=== PATIENT | male | born 1970 | race Caucasian/White ===

== ENCOUNTER 2017-03-18 08:41 | Emergency (ER) | payer MEDICAID ==
[~2017-03-18] VITALS: Ht 182.9 cm; Wt 59.9 kg
[~2017-03-18 08:41] MED LIST: SUCR1TAB36 PO
--- NOTE | 2017-03-18 09:14 | ED GI ---
General Chief Complaint: Abdominal/GI Problems Stated Complaint: ABD PAIN Nursing Triage Note: PT CO OF ABD PAIN, DIFFUSE, CONSTIPATION, DIARRHEA,STATES USED ENEMAS YESTERDAY,STATES HAS LOST 30 # RECENTLY Sepsis Screen: No Definite Risk Source of Information: Patient Exam Limitations: No Limitations History of Present Illness Time Seen By Provider: 09:08 Initial Comments Patient reports that he has been battling constipation for years and for the past 2 weeks he has not been able to have much of a bowel movement. However he states she's also had very little appetite. He has been using IV methamphetamines which she feels may be contributing to his lack of appetite. He states he is seen at the clinic in [place] and was recently tested for hepatitis there. He is having mild diffuse abdominal pain and nausea. He was seen at the ER in [place] and told to use MiraLAX every 2 hours that he was unable to keep it down because of the nausea. They gave him a pill for nausea which she used and it helped but he abandon the MiraLAX and try to couple enemas did not do anything but liquids back. Patient states he is passing gas this morning. He reports using methamphetamine as recently as 2 days ago. He has not attending Narcotics Anonymous. He declines treatment or wanting to get off at this time. Allergies and Home Medications Allergies Coded Allergies: No Known Drug Allergies (Unverified , 10/18/15) Home Medications Sucralfate 1 Gm Tablet, 1 GM PO QID, #40 Prescribed by: AUGUSTO CARSON on 10/18/15 1352 Review of Systems Constitutional: No chills, No diaphoresis, No malaise Respiratory: Denies Shortness of Air, Denies Wheezing Cardiovascular: Denies Chest Pain, Denies Palpitations, Denies Syncope Gastrointestinal: Denies Abdomen Distended, Abdominal Pain, Constipated ( chronic), Denies Diarrhea, Denies Difficulty Swallowing, Nausea, Vomiting ( without blood) Genitourinary: Denies Burning, Denies Discharge Musculoskeletal: No back pain, No joint pain Skin: No pruritus, No rash Past Ziiifck-Apircn-Xdmvab Hx Patient Social History Alcohol Use: Regular Use Recreational Drug Use: Yes (METH 2 DAYS AGO) Smoking Status: Current Everyday Smoker Recent Foreign Travel: No Contact w/Someone Who Travel: No Recent Infectious Disease Expo: No Surgeries HX Surgeries: No Respiratory Hx Respiratory Disorders: No Cardiovascular Hx Cardiac Disorders: No Neurological Hx Neurological Disorders: No Reproductive System Hx Reproductive Disorders: No Genitourinary Hx Genitourinary Disorders: No Gastrointestinal Hx Gastrointestinal Disorders: No Musculoskeletal Hx Musculoskeletal Disorders: No Endocrine Hx Endocrine Disorders: No HEENT HX ENT Disorders: No Cancer Hx Cancer: No Psychosocial Hx Psychiatric Problems: No Integumentary HX Skin/Integumentary Disorder: No Blood Transfusions Hx Blood Disorders: No Physical Exam Vital Signs VS - Last 72 Hours, by Label 03/18/17 08:50 Temp 98.1 Pulse 104 Resp 18 B/P (MAP) 138/105 Pulse Ox 97 Capillary Refill : Less Than 3 Seconds General Appearance: WD/WN, no apparent distress HEENT: PERRL/EOMI, pharynx normal Neck: non-tender, normal inspection Respiratory: lungs clear, normal breath sounds Cardiovascular: normal peripheral pulses, regular rate, rhythm, no edema Peripheral Pulses: 4+ Radial Pulses (R), 4+ Radial Pulses (L) Gastrointestinal: soft, no organomegaly, no pulsatile mass, abnormal bowel sounds (hyperactive), No guarding, No rebound, tenderness, other (diffuse) Extremities: non-tender, normal inspection, no calf tenderness, normal capillary refill Back: normal inspection, no CVA tenderness Neurologic/Psychiatric: alert, oriented x 3 Skin: normal color, warm/dry Progress/Results/Core Measures Results/Orders My Orders Orders - DIEGO OLVERA Abdomen/Kub 1view (03/18/17 09:14) Vital Signs/I&O Vital Sign - Last 12Hours 03/18/17 08:50 Temp 98.1 Pulse 104 Resp 18 B/P (MAP) 138/105 Pulse Ox 97 Blood Pressure Mean: 116 Progress Note : Time: 09:48 Progress Note Offered him to quit narcotics and support and the patient declined. His diarrhea and nausea may be because there does not appear to be anything on physical exam in his colon. We will get a abdominal x-ray to look at that. He is asking for refill of nausea meds and where or than willing to help him there. I explained in great detail that his weight loss is probably due to his IV drug use. The patient states he realizes this. He has recently been checked for chronic hepatitis outpatient. Diagnostic Imaging Diagonstic Imaging: Xray Plain Films/CT/US/NM/MRI: abdomen Comments No acute osseous abnormality is noted. There is a nonspecific bowel gas pattern without evidence of constipation. Departure Impression Impression: Primary Impression: Nausea and vomiting Qualified Codes: R11.2 - Nausea with vomiting, unspecified Disposition: 01 HOME, SELF-CARE Condition: Stable Departure-Patient Inst. Referrals: [facility][1] (PCP) Primary Care Physician Patient Instructions: Nausea and Vomiting, Adult (DC) Add. Discharge Instructions: You have been given some medicine called Zofran to be used every 6 hours as needed for nausea or vomiting. Take at the first signs of nausea. Start slow with a clear liquid diet and advance to broths and soups. As you become better able to tolerate foods you should try foods with high fiber content such as bananas, rice, applesauce, or toast. You do not need to continue taking MiraLAX or enemas at this time as it appears your bowels are cleaned out. As your appetite returns you'll start to feel better and you should be encouraged to drink plenty of fluids. You are highly encouraged not to take any medications not prescribed for recommend by your physician. If you need help with your addictions you can talk to your primary care physician or come back and we will make referral to an addiction treatment facility. You may also present directly to an addiction treatment facility on your own accord. All discharge instructions reviewed with patient and/or family. Voiced understanding. Scripts Ondansetron HCl (Zofran) 4 Mg Tab 4 MG PO Q6H Y for NAUSEA/VOMITING-1ST LINE, #20 TAB 0 Refills Prov: DIEGO LOVERA 03/18/17 Copy Copies To 1: FARAZ KENNEDY DO DIEGO OLVERA Mar 18, 2017 09:14
[2017-03-18] MEDS ORDERED: ONDN4T PO ×2 (09:18→10:01)
--- NOTE | 2017-03-18 10:00 | Diagnostic Imaging Report ---
INDICATION: Abdominal pain FINDINGS: No pathological fecal loading. No pathological air-containing dilated loop of small or large bowel. No suspicious calcifications or mass effect. IMPRESSION: Unremarkable KUB. Dictated by: Dictated on workstation # [id number]
[2017-03-18 10:09] VITALS: BP 132/94
--- OUTSIDE RECORDS SUMMARY | 2017-03-21 04:12 | XMS REPORT | Continuity of Care Document ---
Author Author [facility] Address Unknown Phone Unavailable Allergies Active Description Code Type Severity Reaction Onset Reported/Identified Relationship to Patient Clinical Status Yes No Known Drug Allergies [id number] Drug Allergy Unknown N/ A 10/18/2015 Medications Problems Date Dx Coded Attending Type Code Diagnosis Diagnosed By 07/15/2014 MARIA M MCKEON APRN 305.93 NONDEPENDENT OTHER MIXED OR UNSPECIFIED DRUG ABUSE IN REMISSION 07/15/2014 MARIA M MCKEON APRN L 719.44 PAIN IN JOINT INVOLVING HAND 07/15/2014 MARIA M MCKEON APRN L 727.3 OTHER BURSITIS DISORDERS 07/15/2014 MARIA M MCKEON APRN L 305.93 NONDEPENDENT OTHER MIXED OR UNSPECIFIED DRUG ABUSE IN REMISSION 07/15/2014 MARIA M MCKEON APRN L 719.44 PAIN IN JOINT INVOLVING HAND 07/15/2014 MARIA M MCKEON APRN L 727.3 OTHER BURSITIS DISORDERS 08/13/2014 MARIA M MCKEON APRN L 715.04 OSTEOARTHROSIS GENERALIZED INVOLVING HAND 10/18/2015 AUGUSTO CARSON APRN Ot F10.20 10/18/2015 AUGUSTO CARSON APRN Ot K29.70 Procedures Code [place] [address] ROUTINE VENIPUNCTURE 07/15/2014 61949 CMP 07/15/2014 74175 LIPID PANEL 07/15 48272 CBC 07/15/2014 98730 SED/ESR RATE RML 07/15/2014 99438 CRP 07/15/2014 98937 HIV ([facility]) 07/15/2014 98901 HEP C ANTIBODY ([facility]) 07/15/2014 65561 TSH 07/15/2014 52735 XRAY HAND GERMAN 2 VIEWS 08/13/2014 Results Encounters ACCT No. Visit Date/Time Discharge Status Pt. Type Provider Facility Loc./Unit Complaint [id number] 08/13/2014 07:38:00 08/13/2014 23: 59:59 [facility] Outpatient MARIA M MCKEON APRN [id number] 07/15/2014 09:31:00 07/15/2014 23: 59:59 [facility] Outpatient MARIA M MCKEON APRN
== END 2017-03-18 10:09 | disposition home or self-care (01) ==
LOC: EDUNIT# 08:41 → ER 08:44
DX: R10.31 Right lower quadrant pain (principal); R10.32 Left lower quadrant pain
CPT/HCPCS: 74000; 99282

== ENCOUNTER 2018-11-14 16:01 | Emergency (ER) | payer SELFPAY ==
[~2018-11-14] VITALS: Ht 182.9 cm; Wt 68.0 kg
[~2018-11-14 16:01] MED LIST changes: +ONDN4T PO
--- NOTE | 2018-11-14 16:20 | ED Upper Extremity ---
General Chief Complaint: Upper Extremity Stated Complaint: R ELBOW PAIN Source: patient Exam Limitations: no limitations History of Present Illness Date Seen by Provider: Nov 14, 2018 Time Seen by Provider: 16:19 Initial Comments 48-year-old male who presents to the emergency room with complaints of right elbow pain after tripping and falling last night landing on the coffee table. He reports that when he tripped he fell onto his knees and hit the edge of his coffee table with his right elbow. He has had reconstructive surgery to the right elbow in the past and this morning when he woke up he had pain and swelling to the right elbow. Onset: other (last night) Pain/Injury Location: right elbow Modifying Factors: Worse With Movement Allergies and Home Medications Allergies Coded Allergies: No Known Drug Allergies (Unverified , 10/18/15) Home Medications Sucralfate 1 Gm Tablet, 1 GM PO QID Prescribed by: AUGUSTO CARSON on 10/18/15 1352 Patient Home Medication List Home Medication List Reviewed: Yes Past Wrqqcrn-Ieqqqv-Wctmbq Hx Patient Social History Alcohol Beverage of Choice: Beer Recent Foreign Travel: No Contact w/Someone Who Travel: No Past Medical History Reproductive Disorders: No Physical Exam Vital Signs Vital Signs - First Documented 11/14/18 16:10 Temp 98.0 Pulse 90 Resp 16 B/P (MAP) 135/81 (99) Pulse Ox 95 O2 Delivery Room Air Capillary Refill : Height, Weight, BMI Height: 6'0" Weight: 132lbs. oz. 59.535115aj; BMI Method:Stated Progress/Results/Core Measures Results/Orders My Orders Orders - FLORENTIN FORBES Elbow, Right, 3 Views (11/14/18 16:18) Vital Signs/I&O 11/14/18 16:10 Temp 98.0 Pulse 90 Resp 16 B/P (MAP) 135/81 (99) Pulse Ox 95 O2 Delivery Room Air Departure Impression Primary Impression: Contusion of right elbow Disposition: 01 HOME, SELF-CARE Condition: Stable/Unchanged Departure-Patient Inst. Decision time for Depature: 17:10 Referrals: [facility] (PCP) Primary Care Physician NO,LOCAL PHYSICIAN (Family) Primary Care Physician Patient Instructions: Contusion (DC) Add. Discharge Instructions: Ice to the sore areas at 20 minute intervals. You may use ibuprofen and Tylenol as directed by the bottle for pain relief. For pain unrelieved with ibuprofen and Tylenol you may use the hydrocodone that was prescribed. Follow-up with an orthopedic surgeon in 1 week if the elbow pain is not improving. Return back to the emergency room for worsening symptoms or concerns as needed. All discharge instructions reviewed with patient and/or family. Voiced understanding. Scripts Hydrocodone Bit/Acetaminophen (Hydrocodone/Acetaminophen 5/325mg Tablet) 1 Tab Tab 1 EACH PO Q4-6HR PRN for PAIN-MODERATE MDD 10, #10 TAB Prov: FLORENTIN FORBES 11/14/18 FLORENTIN FORBES Nov 14, 2018 16:20
--- NOTE | 2018-11-14 16:51 | Diagnostic Imaging Report ---
INDICATION: Fall with right elbow injury. FINDINGS: AP, oblique and lateral views of the right elbow reveal old fracture deformity and two Ron screws within the radial head. There may be minimal offset of articular surface. There is mild marginal spurring about the elbow joint indicating probable posttraumatic degenerative change. There are no acute fractures identified. There is no definite joint effusion or hemarthrosis although lateral view is somewhat limited due to positioning. IMPRESSION: Old elbow region injuries without definite acute osseous abnormality. Dictated by: Dictated on workstation # [id number]
[2018-11-14] MEDS ORDERED: ACHD5005 PO (17:11)
[2018-11-14] MEDS ORDERED: HYDROcodone/APAP 7.5 MG/325 MG (LORTAB, LORCET PLUS) TABLET PO ONE (17:15)
[2018-11-14 17:16] VITALS: BP 135/81
--- OUTSIDE RECORDS SUMMARY | 2018-11-14 20:43 | XMS REPORT ---
Demographics Address [address] [place] [address] Preferred Language Unknown Marital Status Unknown Jewish Affiliation Unknown Race Unknown Ethnic Group Unknown Author Author FARAZ KENNEDY [facility] Address [address] [place] [address] Care Team Providers Care Healthcare Recruiter Name Role Phone FARAZ KENNEDY Unavailable PROBLEMS Type Condition ICD9-CM Code [id number] Code Onset Dates Condition Status SNOMED Code Problem Generalized abdominal pain R10.84 Active 353851637 Problem Constipation, unspecified constipation type K59.00 Active 48541332 Problem Generalized anxiety disorder F41.1 Active 77210871 Problem Mood disorder F39 Active 99624193 ALLERGIES No Information ENCOUNTERS Encounter Location Date Diagnosis [facility] [address] [address] Jun, Encounter for immunization Z23 [facility] [address] [id number] [id number] Apr, [facility] [address] [address] [facility] [address] [id number] [id number] Jun, Dental caries K02.9 [facility] [place] [address] [address] [facility] [id number] [id number] Apr, Dental examination Z01.20 [facility] [address] [facility] [address] [id number] [id number] Feb, Constipation, unspecified constipation type K59.00 and Generalized abdominal pain R10.84 [facility] [address] [facility] [id number] [id number] Feb, [facility] [address] [id number][place] [id number] Feb, [facility] [address] [facility] [id number], [place] [address] 09 Feb, 2017 Generalized anxiety disorder F41.1 and Mood disorder F39 [facility] [address], [place] [address] Feb, Strain of right biceps muscle, initial encounter S46.211A and Acute pain of right shoulder M25.511 [facility] [address] [address] 10 Oct, 2015 [facility] [address] [id number][place] [id number] 10 Oct, 2015 Abdominal pain R10.9 and Epigastric abdominal pain R10.13 [facility] [place] [address] [place] [address] AVE [id number], [place] [id number] January, [facility]dominal [facility]89.[id number] [place] [id number] January, Constipation 564.00 [facility] [address] [place] [address] [address], [address] [facility] [id number] [place] [address] Dec, [facility] [address] [place] [address] Jul, [facility] [address] [address] Jul, [facility] [address] [address] Jul, [facility] [address] [id number] [address] Jun, [facility] [address] [address] Jun, [facility] [address] [address] Jun, [facility] [address] [address] Jun, IMMUNIZATIONS Vaccine Route Administration Date Status FLULAVAL QUAD 0.5ML (6 MO & UP) 2017 IM Intramuscular Jul 13, 2018 Administered SOCIAL HISTORY Never Assessed REASON FOR VISIT Flu shot-DUKE beltran PLAN OF CARE VITAL SIGNS MEDICATIONS Unknown Medications RESULTS No Results PROCEDURES Procedure Date Ordered Result Body Site FLULAVAL QUAD 0.5ML (6 MO AND UP) 2017Jul 13, 2018 SINGLE IMMUNIZATION ADMIN Jul 13, 2018 INSTRUCTIONS MEDICATIONS ADMINISTERED No Known Medications MEDICAL (GENERAL) HISTORY Type Description Date Medical History arthritis-osteo Medical History Gastritis Hospitalization History Hospitalized for pancreatitis approx 2004 Hospitalization History [facility]-Stomach pain. Recieved two bags of fluid and released. 02/2017
--- OUTSIDE RECORDS SUMMARY | 2018-11-14 20:44 | XMS REPORT ---
Demographics Address [address] [place] [address] Preferred Language Unknown Marital Status Unknown Sabianism Affiliation Unknown Race Unknown Ethnic Group Unknown Author Author MARIA M MCKEON [facility] Address [address] [place] [address] Care Team Providers Care Public Finance Specialist Name Role Phone MARIA M MCKEON Unavailable PROBLEMS Type Condition ICD9-CM Code [id number] Code Onset Dates Condition Status SNOMED Code Problem Generalized abdominal pain R10.84 Active 080608982 Problem Constipation, unspecified constipation type K59.00 Active 06831438 Problem Generalized anxiety disorder F41.1 Active 37145698 Problem Mood disorder F39 Active 79544718 ALLERGIES No Information ENCOUNTERS Encounter Location Date Diagnosis [facility] [address] [id number] [id number] Apr, [facility] [address] [id number] [id number] Jun, Dental caries K02.[address] [id number] [place] [id number] Apr, Dental examination Z01.[address] [id number][place] [id number] Feb, Constipation, unspecified constipation type K59.00 and Generalized abdominal pain R10.84 [facility] [address] [id number] [id number] Feb, [address] [id number], [place] [id number] Feb, [facility] [place] [address] [id number], [place] [address] 09 Feb, 2017 Generalized anxiety disorder F41.1 and Mood disorder F39 [facility] [address] [id number], [place] [address] Feb, 2017 Strain of right biceps muscle, initial encounter S46.211A and Acute pain of right shoulder M25.511 [facility] [place] [address] [address] 10 Oct, 2015 [facility] [address] [place] [address] AV [id number][place] [id number] 10 Oct, 2015 Abdominal pain R10.9 and Epigastric abdominal pain R10.13 [facility] [address] [place] [address] AVE [id number][place] [id number] January, Abdominal pain 789.00 [facility] [address] [place] [address] [id number][place] [id number] January, Constipation 564.00 [facility] [place] [id number] [place] [address] Dec, [facility] [place] [id number] [place] [address] Dec, [facility] [place] [id number] [place] [address] Jul, [facility] [place] [id number] [place] [address] Jul, [facility] [place] [id number] [place] [address] Jul, [facility] [place] [address] [place] [address] Jun, [facility] [place] [id number] [place] [address] Jun, [facility] [place] [address], [place] [address] Jun, [facility] [place] [id number] [place] [address] Jun, IMMUNIZATIONS No Known Immunizations SOCIAL HISTORY Never Assessed REASON FOR VISIT Triage PLAN OF CARE VITAL SIGNS MEDICATIONS Unknown Medications RESULTS No Results PROCEDURES No Known procedures INSTRUCTIONS MEDICATIONS ADMINISTERED No Known Medications MEDICAL (GENERAL) HISTORY Type Description Date Medical History arthritis-osteo Medical History Gastritis Hospitalization History Hospitalized for pancreatitis approx 2004 Hospitalization History [facility]Stom[facility]. Recieved two bags of fluid and released. 02/2017
--- OUTSIDE RECORDS SUMMARY | 2018-11-14 20:44 | XMS REPORT ---
Demographics Address [address] [place] [address] Preferred Language Unknown Marital Status Unknown Jew Affiliation Unknown Race Unknown Ethnic Group Unknown Author Author PAKO HANNA [facility] Address [address] [place] [address] Care Team Providers Care Independent Trader Name Role Phone PAKO HANNA Unavailable PROBLEMS Type Condition ICD9-CM Code EYJ07-CI Code Onset Dates Condition Status SNOMED Code Problem Generalized abdominal pain R10.84 Active 099434327 Problem Constipation, unspecified constipation type K59.00 Active 01730217 Problem Generalized anxiety disorder F41.1 Active 54225533 Problem Mood disorder F39 Active 82450763 ALLERGIES No Known Allergies ENCOUNTERS Encounter Location Date Diagnosis [address] [id number], [place] [id number] Jun, Dental caries K02.[address] [id number] [place] [id number] Apr, Dental examination Z01.[address] [id number] [place] [id number] Feb, Constipation, unspecified constipation type K59.00 and Generalized abdominal pain R10.84 [facility] [address] [facility] [id number][place] [id number] Feb, [address] [id number], [place] [id number] Feb, [facility] [place] [address] [id number], [place] [address] Feb, Generalized anxiety disorder F41.1 and Mood disorder F39 [facility] [address] [id number], [place] [address] 08 Feb, 2017 Strain of right biceps muscle, initial encounter S46.211A and Acute pain of right shoulder M25.511 [facility] [place] [address]00565100[place] [address] 10 Oct, 2015 [facility] [address] [address] [id number], [place] [id number] 10 Oct, 2015 Abdominal pain R10.9 and Epigastric abdominal pain R10.13 [facility] [address] [facility] [id number], [place] [id number] January, Abdominal pain 789.[address] [facility] [address] [id number][place] [id number] January, Constipation 564.00 [facility] [place] [id number] [place] [address] Dec, [facility] [place] [id number] [place] [address] Dec, [facility] [place] [id number] [place] [address] Jul, [facility] [place] [id number] [place] [address] Jul, [facility] [place] [id number] [place] [address] Jul, [facility] [place] [address]100[place], [place] [address] Jun, [facility] [place] [address] [place] [address] Jun, [facility] [place] [address]65100[place], [place] [address] Jun, [facility] [place] [id number] [place] [address] Jun, IMMUNIZATIONS No Known Immunizations SOCIAL HISTORY Never Assessed REASON FOR VISIT Abdominal pain started nine days ago. Vomiting, constipation. bferrisma PLAN OF CARE Activity Details Follow Up recommend est care appt Reason: VITAL SIGNS Height 69 in 2017-03-16 Weight 132.2 lbs 2017-03-16 Temperature 97.4 degrees Fahrenheit 2017-03-16 Heart Rate 120 bpm 2017-03-16 Respiratory Rate 20 2017-03-16 BMI 19.52 kg/m2 2017-03-16 Blood pressure systolic 122 mmHg 2017-03-16 Blood pressure diastolic 98 mmHg 2017-03-16 MEDICATIONS Medication Instructions Dosage Frequency Start Date End Date Duration Status MiraLax - Active RESULTS No Results PROCEDURES No Known procedures INSTRUCTIONS MEDICATIONS ADMINISTERED No Known Medications MEDICAL (GENERAL) HISTORY Type Description Date Medical History arthritis-osteo Medical History Gastritis Hospitalization History Hospitalized for pancreatitis approx 2004 Hospitalization History [facility]-Stomach pain. Recieved two bags of fluid and released. 02/2017
--- OUTSIDE RECORDS SUMMARY | 2018-11-14 20:44 | XMS REPORT ---
Demographics Address [address] [place] [address] Preferred Language Unknown Marital Status Unknown Advent Affiliation Unknown Race Unknown Ethnic Group Unknown Author Author JAY DUNN Organization [facility] Address [address] [place] [address] Care Team Providers Care Acid Mixer Name Role Phone BRANNON PARRAROBIN JAY Unavailable PROBLEMS Type Condition ICD9-CM Code MDI05-YS Code Onset Dates Condition Status SNOMED Code Problem Generalized abdominal pain R10.84 Active 967232141 Problem Constipation, unspecified constipation type K59.00 Active 09015229 Problem Generalized anxiety disorder F41.1 Active 30566158 Problem Mood disorder F39 Active 40196786 ALLERGIES No Information ENCOUNTERS Encounter Location Date Diagnosis [address] [id number] [id number] Jun, Dental caries K02.[address] [id number] [place] [id number] Apr, Dental examination Z01.[address] [id number] [place] [id number] Feb, Constipation, unspecified constipation type K59.00 and Generalized abdominal pain R10.84 [facility] [address] [facility] [id number] [place] [id number] Feb, [address] [id number][place] [id number] Feb, [facility] [address] [id number] [address] Feb, Generalized anxiety disorder F41.1 and Mood disorder F39 [facility] [address] [id number] [address] 08 Feb, 2017 Strain of right biceps muscle, initial encounter S46.211A and Acute pain of right shoulder M25.511 [facility] [address]00565100[place] [address] 10 Oct, 2015 [facility] [address] [id number][place] [id number] 10 Oct, 2015 Abdominal pain R10.9 and Epigastric abdominal pain R10.13 [facility] [address] [id number][place] [id number] January, Abdominal pain 789.00 [facility] [address] [id number][place] [id number] January, Constipation 564.00 [facility] [id number] [place] [address] Dec, [facility] [id number] [place] [address] Dec, [facility] [id number] [place] [address] Jul, [facility] [address] [id number] [address] Jul, [facility] [id number] [place] [address] Jul, [facility] [address]65100[place] [address] Jun, [facility] [address]65100[place] [address] Jun, [facility] [address]65100[place] [address] Jun, [facility] [address]65100[place] [address] Jun, IMMUNIZATIONS No Known Immunizations SOCIAL HISTORY Never Assessed REASON FOR VISIT wants referral to Dr Guan PLAN OF CARE VITAL SIGNS MEDICATIONS No Known Medications RESULTS No Results PROCEDURES No Known procedures INSTRUCTIONS MEDICATIONS ADMINISTERED No Known Medications MEDICAL (GENERAL) HISTORY Type Description Date Medical History arthritis-osteo Medical History Gastritis Hospitalization History Hospitalized for pancreatitis approx 2004 Hospitalization History [facility]-Stomach pain. Recieved two bags of fluid and released. 02/2017
--- OUTSIDE RECORDS SUMMARY | 2018-11-14 20:44 | XMS REPORT ---
Demographics Address [address] [place] [address] Preferred Language Unknown Marital Status Unknown Mu-Ism Affiliation Unknown Race Unknown Ethnic Group Unknown Author Author JAY DUNN Organization [facility] Address [address] [place] [address] Care Team Providers Care Surgical Scrub Technologist Name Role Phone BRANNON PARRAROBIN JAY Unavailable PROBLEMS Type Condition ICD9-CM Code LFQ75-BJ Code Onset Dates Condition Status SNOMED Code Problem Generalized abdominal pain R10.84 Active 452660440 Problem Constipation, unspecified constipation type K59.00 Active 12337961 Problem Generalized anxiety disorder F41.1 Active 84079472 Problem Mood disorder F39 Active 02028656 ALLERGIES No Information ENCOUNTERS Encounter Location Date Diagnosis [address] [id number] [place] [phone] Jun, Dental caries K02.[address] [id number] [place] [id number] Apr, Dental examination Z01.[id number] [place] [id number] Feb, Constipation, unspecified constipation type K59.00 and Generalized abdominal pain R10.84 [facility] [address] [facility] [id number][place] [id number] Feb, [address] [id number] CITY[place] [id number] Feb, [facility] [address] [id number], [place] [address] Feb, Generalized anxiety disorder F41.1 and Mood disorder F39 [facility] [address] [id number], [place] [address] 08 Feb, 2017 Strain of right biceps muscle, initial encounter S46.211A and Acute pain of right shoulder M25.511 [facility] [address]00565100[place], [place] [address] 10 Oct, 2015 [facility] [address] [id number] [place] [id number] 10 Oct, 2015 Abdominal pain R10.9 and Epigastric abdominal pain R10.13 [facility] [address] [id number] [place] [id number] January, Abdominal pain 789.00 [facility] [address] [id number] CITY[place] [id number] January, Constipation 564.00 [facility] [address] [place] [address] Dec, [facility] [id number] [place] [address] Dec, [facility] [id number] [place] [address] Jul, [facility] [address] [id number], [place] [address] Jul, [facility] [id number] [place] [address] Jul, [facility] [address]65100[place], [place] [address] Jun, [facility] [address]65100[place], [place] [address] Jun, [facility] [address]65100[place], [place] [address] Jun, [facility] [address], [place] [address] Jun, IMMUNIZATIONS No Known Immunizations SOCIAL HISTORY Never Assessed REASON FOR VISIT Requests return call PLAN OF CARE VITAL SIGNS MEDICATIONS No Known Medications RESULTS No Results PROCEDURES No Known procedures INSTRUCTIONS MEDICATIONS ADMINISTERED No Known Medications MEDICAL (GENERAL) HISTORY Type Description Date Medical History arthritis-osteo Medical History Gastritis Hospitalization History Hospitalized for pancreatitis approx 2004 Hospitalization History [facility]-Stomach pain. Recieved two bags of fluid and released. 02/2017
--- OUTSIDE RECORDS SUMMARY | 2018-11-14 20:44 | XMS REPORT | Continuity of Care Document ---
Author Author [facility] Address Unknown Phone Unavailable Allergies Active Description Code Type Severity Reaction Onset Reported/Identified Relationship to Patient Clinical Status Yes No Known Drug Allergies [id number] Drug Allergy Unknown N/A 10/18/2015 Medications There is no data. Problems Date Dx Coded Attending Type Code Diagnosis Diagnosed By 07/15/2014 MARIA M MCKEON APRN 305.93 NONDEPENDENT OTHER MIXED OR UNSPECIFIED DRUG ABUSE IN REMISSION 07/15/2014 MARIA M MCKEON APRN L 719.44 PAIN IN JOINT INVOLVING HAND 07/15/2014 DOMENICA MCKEON APRNSON L 727.3 OTHER BURSITIS DISORDERS 07/15/2014 MARIA M MCKEON APRN L 305.93 NONDEPENDENT OTHER MIXED OR UNSPECIFIED DRUG ABUSE IN REMISSION 07/15/2014 DOMENICA MCKEON APRNSON L 719.44 PAIN IN JOINT INVOLVING HAND 07/15/2014 DOMENICA MCKEON APRNSON L 727.3 OTHER BURSITIS DISORDERS 08/13/2014 DOMENICA MCKEON APRNSON L 715.04 OSTEOARTHROSIS GENERALIZED INVOLVING HAND 10/18/2015 AUGUSTO CARSON FIELD SERVICES MANAGER Ot F10.20 10/18/2015 AUGUSTO CARSON FIELD SERVICES MANAGER Ot K29.70 2017 DIEGO OLVERA MD Ot F15.90 OTHER STIMULANT USE, UNSPECIFIED, UNCOMP 2017 DIEGO OLVERA MD Ot F17.200 NICOTINE DEPENDENCE, UNSPECIFIED, UNCOMP 2017 DIEGO OLVERA MD Ot K59.09 OTHER CONSTIPATION 2017 DIEGO OLVERA MD Ot R10.84 GENERALIZED ABDOMINAL PAIN 2017 DIEGO OLVERA MD Ot R11.2 NAUSEA WITH VOMITING, UNSPECIFIED 03/21/2017 DIEGO OLVERA MD Ot F15.90 OTHER STIMULANT USE, UNSPECIFIED, UNCOMP 03/21/2017 DIEGO OLVERA MD Ot F17.200 NICOTINE DEPENDENCE, UNSPECIFIED, UNCOMP 03/21/2017 DIEGO OLVERA MD Ot K59.09 OTHER CONSTIPATION 03/21/2017 DIEGO OLVERA MD Ot R10.84 GENERALIZED ABDOMINAL PAIN 03/21/2017 DIEGO OLVERA MD Ot R11.2 NAUSEA WITH VOMITING, UNSPECIFIED Procedures Code [place] [address] ROUTINE VENIPUNCTURE 07/15/2014 09160 CMP 07/15/2014 75433 LIPID PANEL 07/15/2014 55113 CBC 07/15/2014 53334 SED/ESR RATE RML 07/15/2014 81705 CRP 07/15/2014 96868 HIV ([facility]) 07/15/2014 14831 HEP C ANTIBODY ([facility]) 07/15/2014 46928 TSH 07/15/2014 29048 XRAY HAND GERMAN 2 VIEWS 08/13/2014 Results There is no data. Encounters ACCT No. Visit Date/Time Discharge Status Pt. Type Provider Facility Loc./Unit Complaint [id number] 08/13/2014 07:38:00 08/13/2014 23:59:59 CLS Outpatient MARIA M MCKEON APRN [id number] 07/15/2014 09:31:00 07/15/2014 23:59:59 CLS Outpatient MARIA M MCKEON APRN [id number] 07/03/2017 09:00:00 07/03/2017 23:59:59 CLS Outpatient LIZ RIDDLE [facility] [id number] 2017 08:44:00 2017 10:09:00 DIS Emergency DIEGO OLVERA MD [facility] ABD PAIN [id number] 11/20/2015 05:50:00 11/20/2015 23:59:59 CLS Outpatient ASHLEY KHALIL, PEDRO Olivares [facility] PREOP [id number] 10/18/2015 12:31:00 10/18/2015 14:00:00 DIS Emergency AUGUSTO CASRON APRN [facility]
--- OUTSIDE RECORDS SUMMARY | 2018-11-14 20:44 | XMS REPORT ---
Demographics Address [address] [place] [address] Preferred Language Unknown Marital Status Unknown Quaker Affiliation Unknown Race Unknown Ethnic Group Unknown Author Author KERMIT ADDISON [facility] Address [address] [place] [address] Care Team Providers Care Bisque Finisher Name Role Phone KERMIT ADDISON Unavailable PROBLEMS Type Condition ICD9-CM Code HKP03-TO Code Onset Dates Condition Status SNOMED Code Problem Generalized abdominal pain R10.84 Active 799166112 Problem Constipation, unspecified constipation type K59.00 Active 92941961 Problem Generalized anxiety disorder F41.1 Active 79329249 Problem Mood disorder F39 Active 85700920 ALLERGIES No Known Allergies ENCOUNTERS Encounter Location Date Diagnosis [address] [id number], [place] [phone] Jun, Dental caries K02.[address] [place] [id number] Apr, Dental examination Z01.20 [address] [place] [id number] Feb, Constipation, unspecified constipation type K59.00 and Generalized abdominal pain R10.84 [facility] [address] [facility] [id number] [id number] Feb, [address] [id number], [place] [id number] Feb, [facility] [address] [id number] [address] Feb, Generalized anxiety disorder F41.1 and Mood disorder F39 [facility] [address] [id number] [address] 08 Feb, 2017 Strain of right biceps muscle, initial encounter S46.211A and Acute pain of right shoulder M25.511 [facility] [address]00565100[place] [address] 10 Oct, 2015 [facility] [address] [facility] [address] [id number][place] [id number] 10 Oct, 2015 Abdominal pain R10.9 and Epigastric abdominal pain R10.13 [facility] [address] [facility] [address] [id number][place] [id number] January, Abdominal pain 789.00 [facility] [address] [id number], [place] [id number] January, Constipation 564.00 [facility] [id number] [place] [address] Dec, [facility] [id number] [place] [address] 35[address]- 0065 Dec, [facility] [id number] [place] [address]- 1374 Jul, [facility] [address] [id number] [address] Jul, [facility] [id number] [place] [address]- 7709 Jul, [facility] [address]00565100[place] [address] Jun, [facility] [address]00565100[place] [address] Jun, [facility] [address]100[place] [address] Jun, [facility] [address] [id number] [address] Jun, IMMUNIZATIONS No Known Immunizations SOCIAL HISTORY Never Assessed REASON FOR VISIT wants te PLAN OF CARE Activity Details Follow Up prn Reason:TE #3 VITAL SIGNS Blood pressure systolic 121 mmHg 2017-05-15 Blood pressure diastolic 80 mmHg 2017-05-15 MEDICATIONS Medication Instructions Dosage Frequency Start Date End Date Duration Status Amoxicillin 500 MG Orally every 8 hours 2 tabs stat then 1 TID 8h 7 days Active MiraLax - Active RESULTS No Results PROCEDURES Procedure Date Ordered Result Body Site LTD ORAL EVALUATION - PROBLEM FOCUS May 15, 2017 INTRAORL-PERIAPICAL 1 FILM 63697 May 15, 2017 BITEWING - SINGLE FILM May 15, 2017 INSTRUCTIONS MEDICATIONS ADMINISTERED No Known Medications MEDICAL (GENERAL) HISTORY Type Description Date Medical History arthritis-osteo Medical History Gastritis Hospitalization History Hospitalized for pancreatitis approx 2004 Hospitalization History [facility]-Stomach pain. Recieved two bags of fluid and released. 02/2017
== END 2018-11-14 17:14 | disposition home or self-care (01) ==
LOC: EDUNIT# 16:01 → ER 16:02
DX: S50.01XA Contusion of right elbow, initial encounter (principal); W01.190A Fall on same level from slipping, tripping and stumbling with subsequent striking against furniture, initial encounter
CPT/HCPCS: 73080

== ENCOUNTER 2018-11-16 12:12 | Emergency (ER) | payer SELFPAY ==
[~2018-11-16] VITALS: Ht 182.9 cm; Wt 68.0 kg
[~2018-11-16 12:12] MED LIST changes: +ACHD5005 PO
[2018-11-16] MEDS ORDERED: HYDROcodone/APAP 5 MG/325 MG (LORTAB) TAB PO ONE (13:15)
--- NOTE | 2018-11-16 13:19 | ED Upper Extremity ---
General Chief Complaint: Upper Extremity Stated Complaint: PAIN IN ELBOW Nursing Triage Note: Pt c/o R elbow swelling x3 days. Pt thinks he hyperextended his elbow. Nursing Sepsis Screen: No Definite Risk Source: patient Exam Limitations: no limitations History of Present Illness Date Seen by Provider: Nov 16, 2018 Time Seen by Provider: 13:17 Initial Comments To ER with reports of right elbow swelling 3 days. This occurred after a fall while playing with a grandchild. He was seen here initially and had a negative elbow x-ray. Swelling has progressed since then Onset: just prior to arrival Severity: moderate Pain/Injury Location: right elbow Method of Injury: fell Modifying Factors: Worse With Movement Allergies and Home Medications Allergies Coded Allergies: No Known Drug Allergies (Unverified , 10/18/15) Home Medications Hydrocodone/Acetaminophen 1 Each Tablet, 1 EACH PO Q6H PRN for PAIN-MODERATE Prescribed by: AUGUSTO CARSON on 11/16/18 1415 Hydrocodone/Acetaminophen 1 Each Tablet, 1 EACH PO Q6H PRN for PAIN-MODERATE Prescribed by: AUGUSTO CARSON on 11/16/18 1456 Sucralfate 1 Gm Tablet, 1 GM PO QID Prescribed by: AUGUSTO CARSON on 10/18/15 1352 Patient Home Medication List Home Medication List Reviewed: Yes Review of Systems Constitutional: see HPI EENTM: see HPI Respiratory: no symptoms reported Cardiovascular: no symptoms reported Genitourinary: no symptoms reported Musculoskeletal: see HPI Skin: no symptoms reported Psychiatric/Neurological: No Symptoms Reported Past Ywrrvtj-Vtqhgl-Gqxngh Hx Patient Social History Alcohol Use: Occasionally Uses Number of Drinks Today: AA Alcohol Beverage of Choice: Beer Recreational Drug Use: No Smoking Status: Current Everyday Smoker Recent Foreign Travel: No Contact w/Someone Who Travel: No Recent Infectious Disease Expo: No Recent Hopitalizations: No Physical Abuse: No Sexual Abuse: No Mistreated: No Seasonal Allergies Seasonal Allergies: No Past Medical History Surgeries: Yes (RIGHT ELBOW HAS SCREWS) Orthopedic Respiratory: No Cardiac: No Neurological: No Reproductive Disorders: No Genitourinary: No Gastrointestinal: Yes Gastroesophageal Reflux Musculoskeletal: No Endocrine: No HEENT: No Cancer: No Psychosocial: No Integumentary: No Blood Disorders: No Physical Exam Vital Signs Vital Signs - First Documented 11/16/18 12:57 Temp 99.0 Pulse 74 Resp 18 B/P (MAP) 122/96 (105) Pulse Ox 98 O2 Delivery Room Air Capillary Refill : Less Than 3 Seconds Height, Weight, BMI Height: 6'0" Weight: 150lbs. oz. 68.978545ry; BMI Method:Stated General Appearance: WD/WN, no apparent distress HEENT: PERRL/EOMI, normal ENT inspection Respiratory: no respiratory distress, no accessory muscle use Gastrointestinal: normal bowel sounds, non tender Shoulder: normal inspection, non-tender Elbow/Forearm: Right, limited ROM, pain, swelling (radial pulse is +2. He is able to move his fingers without difficulty. Sensation is diminished in the fingertips.) Wrist: Yes normal inspection, Yes non-tender Hand: normal inspection, non-tender Neurologic/Tendon: normal motor functions, normal tendon functions Neurologic/Psychiatric: alert, normal mood/affect, oriented x 3 Progress/Results/Core Measures Results/Orders My Orders Orders - AUGUSTO CARSON APRN Hydrocodone/Apap 5/325 Tablet (Lortab 5 (11/16/18 13:15) Ct Extremity Upper Right Wo (11/16/18 13:10) Medications Given in ED Current Medications Medications Dose Ordered Sig/Crow Route Start Time Stop Time Status Last Admin Dose Admin Acetaminophen/ Hydrocodone Bitart 1 tab ONCE ONCE PO 11/16/18 13:15 11/16/18 13:16 DC 11/16/18 13:16 1 TAB Vital Signs/I&O 11/16/18 11/16/18 12:57 15:02 Temp 99.0 Pulse 74 80 Resp 18 20 B/P (MAP) 122/96 (105) 126/90 (102) Pulse Ox 98 98 O2 Delivery Room Air Blood Pressure Mean: 105 Diagnostic Imaging Diagonstic Imaging: CT Comments NAME: ISRAEL DYE [facility] REC#: [id number] PT STATUS: REG ER : 1970 PHYSICIAN: AUGUSTO CARSON APRN ADMIT DATE: 11/16/18/ER Draft Date of Exam:11/16/18 CT EXTREMITY UPPER RIGHT WO PROCEDURE: CT right elbow without contrast. TECHNIQUE: Multiple contiguous axial images were obtained through the right elbow without the use of intravenous contrast. Sagittal and coronal reformations were then performed. DATE: November 16, 2018. INDICATION: 48-year-old male, right elbow pain and swelling. COMPARISON: Right ankle radiographs November 14, 2018. FINDINGS: There is a comminuted essentially nondisplaced fracture involving the coronoid process of the proximal ulna without gross offset of the articulating surface. Sizable portions of the coronoid process are involved. There is involvement of the anteromedial facet of the coronoid process and sizable portions of the medial aspect of the coronoid process. The coronoid process fracture is well visualized on axial image 22. There are fixation screws in the proximal radius traversing a prior radial head and neck fracture. There is minimal contour deformity of the articulating surface of the radial head at the location of prior fracture. The fixation screws are intact. There is no residual fracture line. There is no identified loss of radial head volume. There is no evidence of osteochondral lesion of the capitellum. There is severe joint space loss between the radial head and capitellum. There is associated small osteophyte formation. There is an elbow joint effusion with ossified intra-articular body on sagittal image 21 which measures 4 x 4 mm in size. There is an additional probable intra-articular body more posteriorly on sagittal image 20 measuring 5 x 3 mm in size. The elbow is not currently dislocated. There are significant limitations for evaluation of the muscles and tendons on this exam with nondiagnostic evaluation of the elbow ligaments. There is extensive subcutaneous edema at the level of the elbow most prominent posteriorly. IMPRESSION: 1. Comminuted essentially nondisplaced fracture of the coronoid including involvement of sizable portions of the coronoid and anteromedial facet and prominent medial extension of the fracture. Orthopedic referral recommended. 2. Intact fixation screws in the proximal radius with minimal contour abnormality of the articulating surface of the radial head relating to prior healed fracture. 3. The elbow is not currently dislocated. 4. Large elbow joint effusion with intra-articular bodies. 5. Nondiagnostic evaluation of elbow ligaments and very limited evaluation of the tendons on this exam. 6. Extensive subcutaneous edema. Dictated on workstation # [id number] Dict: 11/16/18 1342 Trans: 11/16/18 1434 [facility] [id number] Interpreted by: AGUSTÍN COOK MD Electronically signed by: Departure Communication (Admissions) Patient was placed in a posterior long-arm splint and given sling. He will follow-up with [facility] where they will arrange orthopedic consultation. Impression Primary Impression: Elbow fracture Qualified Codes: S42.401A - Unspecified fracture of lower end of right humerus , initial encounter for closed fracture Disposition: 01 HOME, SELF-CARE Condition: Stable Departure-Patient Inst. Decision time for Depature: 14:14 Referrals: [facility] (PCP) Primary Care Physician BRAULIO,LOCAL PHYSICIAN (Family) Primary Care Physician BRUNO SAMANO MD Patient Instructions: Elbow Fracture (DC) Add. Discharge Instructions: 1. Wear the splint at all times 2. Follow-up with your doctor next week. Call your orthopedic surgeon for follow -up. 3. Take pain medication as directed discharge instructions reviewed with patient and/or family. Voiced understanding. Scripts Hydrocodone/Acetaminophen ([facility] 5-325 Tablet) 1 Each Tablet 1 EACH PO Q6H PRN for PAIN-MODERATE MDD 10, #30 TAB Prov: AUGUSTO CARSON CHIEF MECHANICAL OFFICER 11/16/18 Hydrocodone/Acetaminophen ([facility] 5-325 Tablet) 1 Each Tablet 1 EACH PO Q6H PRN for PAIN-MODERATE MDD 10, #14 TAB Prov: AUGUSTO CARSON CHIEF MECHANICAL OFFICER 11/16/18 AUGUSTO CARSON CHIEF MECHANICAL OFFICER Nov 16, 2018 13:19
[2018-11-16] MEDS ORDERED: HYDR-4226 PO ×2 (14:15→14:56)
--- NOTE | 2018-11-16 14:34 | Diagnostic Imaging Report ---
PROCEDURE: CT right elbow without contrast. TECHNIQUE: Multiple contiguous axial images were obtained through the right elbow without the use of intravenous contrast. Sagittal and coronal reformations were then performed. DATE: November 16, 2018. INDICATION: 48-year-old male, right elbow pain and swelling. COMPARISON: Right ankle radiographs November 14, 2018. FINDINGS: There is a comminuted essentially nondisplaced fracture involving the coronoid process of the proximal ulna without gross offset of the articulating surface. Sizable portions of the coronoid process are involved. There is involvement of the anteromedial facet of the coronoid process and sizable portions of the medial aspect of the coronoid process. The coronoid process fracture is well visualized on axial image 22. There are fixation screws in the proximal radius traversing a prior radial head and neck fracture. There is minimal contour deformity of the articulating surface of the radial head at the location of prior fracture. The fixation screws are intact. There is no residual fracture line. There is no identified loss of radial head volume. There is no evidence of osteochondral lesion of the capitellum. There is severe joint space loss between the radial head and capitellum. There is associated small osteophyte formation. There is an elbow joint effusion with ossified intra-articular body on sagittal image 21 which measures 4 x 4 mm in size. There is an additional probable intra-articular body more posteriorly on sagittal image 20 measuring 5 x 3 mm in size. The elbow is not currently dislocated. There are significant limitations for evaluation of the muscles and tendons on this exam with nondiagnostic evaluation of the elbow ligaments. There is extensive subcutaneous edema at the level of the elbow most prominent posteriorly. IMPRESSION: 1. Comminuted essentially nondisplaced fracture of the coronoid including involvement of sizable portions of the coronoid and anteromedial facet and prominent medial extension of the fracture. Orthopedic referral recommended. 2. Intact fixation screws in the proximal radius with minimal contour abnormality of the articulating surface of the radial head relating to prior healed fracture. 3. The elbow is not currently dislocated. 4. Large elbow joint effusion with intra-articular bodies. 5. Nondiagnostic evaluation of elbow ligaments and very limited evaluation of the tendons on this exam. 6. Extensive subcutaneous edema. Dictated by: Dictated on workstation # [id number]
[2018-11-16 15:02] VITALS: BP 126/90
--- OUTSIDE RECORDS SUMMARY | 2018-11-18 09:19 | XMS REPORT | Continuity of Care Document ---
Author Author Formerly [facility] Address Unknown Phone Unavailable Allergies Active Description Code Type Severity Reaction Onset Reported/Identified Relationship to Patient Clinical Status Yes No Known Drug Allergies [id number] Drug Allergy Unknown N/A 10/18/2015 Medications There [...] HAND 10/18/2015 AUGUSTO CARSON APRN Ot F10.20 ALCOHOL DEPENDENCE, UNCOMPLICATED 10/18/2015 AUGUSTO CARSON APRN Ot K29.70 GASTRITIS, UNSPECIFIED, WITHOUT BLEEDING 2017 DIEGO OLVERA MD Ot F15.90 OTHER STIMULANT USE, UNSPECIFIED, UNCOMP 2017 WADE KHALIL, DIEGO Aleman Ot F17.200 NICOTINE DEPENDENCE, UNSPECIFIED, UNCOMP 2017 [...] MD Ot R11.2 NAUSEA WITH VOMITING, UNSPECIFIED 11/14/2018 FLORENTIN FORBES Ot M25.521 PAIN IN RIGHT ELBOW 11/14/2018 FLORENTIN FORBES Ot S50.01XA CONTUSION OF RIGHT ELBOW, INITIAL ENCOUN 11/14/2018 FLORENTIN FORBES Ot W01.190A FALL SAME LEV FROM SLIP/TRIP W STRIKE AG 11/14/2018 ASHLEY KHALIL, PEDRO Olivares Ot R10.13 EPIGASTRIC PAIN 11/14/2018 ASHLEY KHALIL, PEDRO Olivares Ot Z01.818 ENCOUNTER FOR OTHER PREPROCEDURAL EXAMIN 11/16/2018 FLORENTIN FORBES Ot M25.521 PAIN IN RIGHT ELBOW 11/16/2018 FLORENTIN FORBES Ot S50.01XA CONTUSION OF RIGHT ELBOW, INITIAL ENCOUN 11/16/2018 FLORENTIN FORBES Ot W01.190A FALL SAME LEV FROM SLIP/TRIP W STRIKE AG 11/16/2018 ASHLEY KHALIL, PEDRO Olivares Ot R10.13 EPIGASTRIC PAIN 11/16/2018 ASHLEY KHALIL, PEDRO Olivares Ot Z01.818 ENCOUNTER FOR OTHER PREPROCEDURAL EXAMIN Procedures Code [place] [address] ROUTINE VENIPUNCTURE 07/15/2014 13866 CMP 07/15/2014 03483 LIPID PANEL 07/15/2014 12734 CBC 07/15/2014 40700 SED/ESR RATE RML 07/15/2014 99614 CRP 07/15/2014 96494 HIV ([facility]) 07/15/2014 07624 HEP C ANTIBODY ([facility]) 07/15/2014 58136 TSH 07/15/2014 17477 XRAY HAND GERMAN 2 VIEWS 08/13/2014 Results There is no data. Encounters ACCT No. Visit Date/Time Discharge Status Pt. Type Provider Facility Loc./Unit Complaint [id number] 08/13/2014 07:38:00 08/13/2014 23:59:59 CLS Outpatient MARIA M MCKEON APRN [id number] 07/15/2014 09:31:00 07/15/2014 23:59:59 CLS Outpatient MIKE RANJITMARIA M [id number] 07/03/2017 09:00:00 07/03/2017 23:59:59 CLS Outpatient JANESSALIZ HALE APRN [facility] [id number] 11/16/2018 12:14:00 11/16/2018 15:02:00 DIS Emergency AUGUSTO CARSON APRN [facility] ER PAIN IN ELBOW [id number] 11/14/2018 16:02:00 11/14/2018 17:14:00 DIS Emergency FLORENTIN FORBES [facility] ER R ELBOW PAIN [id number] 2017 08:44:00 2017 10:09:00 DIS Emergency DIEGO OLVERA MD [facility] ER ABD PAIN [id number] 11/20/2015 05:50:00 11/20/2015 23:59:59 CLS Outpatient PEDRO RAMIREZ MD [facility] PREOP UPPER GASTRIC PAIN [id number] 10/18/2015 12:31:00 10/18/2015 14:00:00 DIS Emergency AUGUSTO CARSON APRN [facility] ER STOMACH PAIN
== END 2018-11-16 15:02 | disposition home or self-care (01) ==
LOC: EDUNIT# 12:12 → ER 12:14
DX: S52.044A Nondisplaced fracture of coronoid process of right ulna, initial encounter for closed fracture (principal); K21.9 Gastro-esophageal reflux disease without esophagitis; F17.200 Nicotine dependence, unspecified, uncomplicated; W19.XXXA Unspecified fall, initial encounter
CPT/HCPCS: 29105; 73200

== ENCOUNTER 2020-02-29 13:43 | Emergency (ER) | payer SELFPAY ==
[~2020-02-29] VITALS: Ht 182.8 cm; Wt 66.8 kg
[~2020-02-29 13:43] MED LIST changes: +HYDR-4226 PO
--- NOTE | 2020-02-29 14:06 | ED General ---
General Chief Complaint: General Problems/Pain Stated Complaint: CONSTIPATION Source of Information: Patient Exam Limitations: No Limitations History of Present Illness Date Seen by Provider: Feb 29, 2020 Time Seen by Provider: 14:04 Initial Comments To ER with reports of constipation. States that he had a very small bowel movement yesterday after taking a bottle of laxative. He does report some epigastric abdominal discomfort which he believes is from being "backed up" and that's why he took the bottle of liquid laxative yesterday. He doesn't recall what kind it was. He does also have some tenderness to the left lower abdomen. Timing/Duration: 1-2 Days Severity: Moderate Associated Systoms: Nausea/Vomiting Allergies and Home Medications Allergies Coded Allergies: No Known Drug Allergies (Unverified , 10/18/15) Home Medications Hydrocodone/Acetaminophen 1 Each Tablet, 1 EACH PO Q6H PRN for PAIN-MODERATE Prescribed by: AUGUSTO CARSON on 11/16/18 1415 Hydrocodone/Acetaminophen 1 Each Tablet, 1 EACH PO Q6H PRN for PAIN-MODERATE Prescribed by: AUGUSTO CARSON on 11/16/18 1456 Polyethylene Glycol 3350 17 Gm Powd.pack, 17 GM PO UD Prescribed by: AUGUSTO CARSON on 02/29/20 1458 Sucralfate 1 Gm Tablet, 1 GM PO QID Prescribed by: AUGUSTO CARSON on 10/18/15 1352 Patient Home Medication List Home Medication List Reviewed: Yes Review of Systems Review of Systems Constitutional: see HPI EENTM: see HPI Respiratory: no symptoms reported Cardiovascular: no symptoms reported Gastrointestinal: abdominal pain, nausea Genitourinary: no symptoms reported Musculoskeletal: no symptoms reported Skin: no symptoms reported Psychiatric/Neurological: No Symptoms Reported Hematologic/Lymphatic: No Symptoms Reported Immunological/Allergic: no symptoms reported Past Niqwpam-Fkksnd-Hrpcgn Hx Patient Social History Alcohol Beverage of Choice: Beer Recent Foreign Travel: No Contact w/Someone Who Travel: No Recent Hopitalizations: No Seasonal Allergies Seasonal Allergies: No Past Medical History Surgeries: Yes (RIGHT ELBOW HAS SCREWS) Orthopedic Respiratory: No Cardiac: No Neurological: No Reproductive Disorders: No Genitourinary: No Gastrointestinal: Yes Gastroesophageal Reflux Musculoskeletal: No Endocrine: No HEENT: No Cancer: No Psychosocial: No Integumentary: No Blood Disorders: No Physical Exam Vital Signs Vital Signs - First Documented 02/29/20 13:54 Pulse 56 Resp 18 B/P (MAP) 132/92 (105) Pulse Ox 100 O2 Delivery Room Air Capillary Refill : Height, Weight, BMI Height: 6'0" Weight: 150lbs. oz. 68.502548tz; BMI Method:Stated General Appearance: No Apparent Distress, WD/WN Eyes: Bilateral Eye Normal Inspection, Bilateral Eye PERRL, Bilateral Eye EOMI Neck: Full Range of Motion, Normal Inspection Respiratory: No Accessory Muscle Use, No Respiratory Distress Cardiovascular: Regular Rate, Rhythm, Normal Peripheral Pulses Gastrointestinal: Normal Bowel Sounds, Soft, Tenderness (minimal tenderness left lower abdomen) Extremity: Normal Capillary Refill, Normal Inspection Neurologic/Psychiatric: Alert, Oriented x3 Skin: Normal Color, Warm/Dry Progress/Results/Core Measures Suspected Sepsis SIRS Temperature: Pulse: Respiratory Rate: Laboratory Tests 02/29/20 14:50: White Blood Count 12.7H Blood Pressure / Mean: Laboratory Tests 02/29/20 14:50: Creatinine 0.85, Platelet Count 407H, Total Bilirubin 0.5 Results/Orders Lab Results Laboratory Tests Test 02/29/20 14:50 Range/Units White Blood Count 12.7 H 4.3-11.0 10^3/uL Red Blood Count 4.59 4.35-5.85 10^6/uL Hemoglobin 15.1 13.3-17.7 G/DL Hematocrit 43 40-54 % Mean Corpuscular Volume 94 80-99 FL Mean Corpuscular Hemoglobin 33 25-34 PG Mean Corpuscular Hemoglobin Concent 35 32-36 G/DL Red Cell Distribution Width 12.8 10.0-14.5 % Platelet Count 407 H 130-400 10^3/uL Mean Platelet Volume 8.3 7.4-10.4 FL Neutrophils (%) (Auto) 73 42-75 % Lymphocytes (%) (Auto) 18 12-44 % Monocytes (%) (Auto) 8 0-12 % Eosinophils (%) (Auto) 2 0-10 % Basophils (%) (Auto) 0 0-10 % Neutrophils # (Auto) 9.2 H 1.8-7.8 X 10^3 Lymphocytes # (Auto) 2.2 1.0-4.0 X 10^3 Monocytes # (Auto) 1.0 0.0-1.0 X 10^3 Eosinophils # (Auto) 0.3 0.0-0.3 10^3/uL Basophils # (Auto) 0.0 0.0-0.1 10^3/uL Sodium Level 139 135-145 MMOL/L Potassium Level 3.9 3.6-5.0 MMOL/L Chloride Level 101 98-107 MMOL/L Carbon Dioxide Level 27 21-32 MMOL/L Anion Gap 11 5-14 MMOL/L Blood Urea Nitrogen 12 7-18 MG/DL Creatinine 0.85 0.60-1.30 MG/DL Estimat Glomerular Filtration Rate > 60 BUN/Creatinine Ratio 14 Glucose Level 101 70-105 MG/DL Calcium Level 9.2 8.5-10.1 MG/DL Corrected Calcium 9.2 8.5-10.1 MG/DL Total Bilirubin 0.5 0.1-1.0 MG/DL Aspartate Amino Transf (AST/SGOT) 24 5-34 U/L Alanine Aminotransferase (ALT/SGPT) 17 0-55 U/L Alkaline Phosphatase 79 40-136 U/L Total Protein 7.1 6.4-8.2 GM/DL Albumin 4.0 3.2-4.5 GM/DL Lipase 11 8-78 U/L My Orders Orders - AUGUSTO CARSON APRN Ct Abdomen/Pelvis Wo (02/29/20 14:01) Comprehensive Metabolic Panel (02/29/20 14:03) Lipase (02/29/20 14:03) Ondansetron Oral Dissolve Tab (Zofran (02/29/20 14:15) Antacid Suspension (Mylanta Suspension (02/29/20 14:15) Lidocaine 2% Viscous 15 Ml (Xylocaine Vi (02/29/20 14:15) Cbc With Automated Diff (02/29/20 14:03) Medications Given in ED Current Medications Medications Dose Ordered Sig/Crow Route Start Time Stop Time Status Last Admin Dose Admin Al Hydrox/Mg Hydrox/Simethicone 30 ml ONCE ONCE PO 02/29/20 14:15 02/29/20 14:16 DC 02/29/20 14:14 30 ML Lidocaine HCl 10 ml ONCE ONCE PO 02/29/20 14:15 02/29/20 14:16 DC 02/29/20 14:14 10 ML Ondansetron HCl 4 mg ONCE ONCE PO 02/29/20 14:15 02/29/20 14:16 DC 02/29/20 14:13 4 MG Vital Signs/I&O 02/29/20 13:54 Pulse 56 Resp 18 B/P (MAP) 132/92 (105) Pulse Ox 100 O2 Delivery Room Air Capillary Refill : Departure Impression Primary Impression: Constipation Qualified Codes: K59.00 - Constipation, unspecified Disposition: HOME, SELF-CARE Condition: Stable Departure-Patient Inst. Decision time for Depature: 14:57 Referrals: [facility] ([place]) Primary Care Physician Patient Instructions: Constipation, Adult (DC) Add. Discharge Instructions: 1. Laxative as directed. Next 1 packet of MiraLAX in a glass of water and drink one of these every 15-20 minutes until you have a bowel movement 2. Return to ER for any concerns Scripts Ondansetron (Ondansetron Odt) 8 Mg Tab.rapdis 8 MG PO Q4H PRN for NAUSEA-1ST LINE, #10 TAB Prov: AUGUSTO CARSON APRN 02/29/20 Polyethylene Glycol 3350 (Miralax) 17 Gm Powd.pack 17 GM PO UD, #10 EACH Prov: AUGUSTO CARSON APRN 02/29/20 AUGUSTO CARSON APRN Feb 29, 2020 14:06
[2020-02-29] MEDS ORDERED: ONDANSETRON 4 MG (ZOFRAN) ORAL DISSOLVE TAB PO ONE (14:15)
[2020-02-29] MEDS ORDERED: ANTACID SUSP 30 ML UDC (MYLANTA) PO ONE (14:15)
[2020-02-29] MEDS ORDERED: LIDOCAINE 2% VISCOUS 15 ML UDC PO ONE (14:15)
--- NOTE | 2020-02-29 14:55 | Diagnostic Imaging Report ---
PROCEDURE: CT abdomen and pelvis without contrast. TECHNIQUE: Multiple contiguous axial images were obtained through the abdomen and pelvis without the use of intravenous contrast. Auto Exposure Controls were utilized during the CT exam to meet ALARA standards for radiation dose reduction. INDICATION: Constipation for 2 days. COMPARISON: No prior studies are available for comparison. FINDINGS: The lung bases are clear. The liver and gallbladder are unremarkable. No biliary ductal dilatation is identified. The pancreas and spleen are unremarkable. No adrenal mass is detected. No definite renal calculi or hydronephrosis is detected. Aorta is non-aneurysmal. Bowel loops appear to be nonobstructed. Moderate stool right colon and transverse colon is noted. Small bowel is nondilated. No free fluid or fluid collection is seen. No inflammatory changes are identified. The bladder and prostate are unremarkable. IMPRESSION: Moderate stool. This study is otherwise unremarkable. Dictated by: Dictated on workstation # [id number]
[2020-02-29 14:56] LABS: BASOPHILS % (AUTO) 0 % (0-10); EOSINOPHILS # (AUTO) 0.3 10^3/uL (0.0-0.3); EOSINOPHILS % (AUTO) 2 % (0-10); HEMATOCRIT 43 % (40-54); HEMOGLOBIN 15.1 G/DL (13.3-17.7); LYMPHOCYTES # (AUTO) 2.2 X 10^3 (1.0-4.0); LYMPHOCYTES % (AUTO) 18 % (12-44); MEAN CORPUSCULAR HEMOGLOBIN 33 PG (25-34); MEAN CORPUSCULAR HGB CONC 35 G/DL (32-36); MEAN CORPUSCULAR VOLUME 94 FL (80-99); MEAN PLATELET VOLUME 8.3 FL (7.4-10.4); MONOCYTES % (AUTO) 8 % (0-12); NEUTROPHILS # (AUTO) 9.2 X 10^3 (1.8-7.8); NEUTROPHILS % (AUTO) 73 % (42-75); PLATELET COUNT 407 10^3/uL (130-400); RED CELL DISTRIBUTION WIDTH 12.8 % (10.0-14.5); WHITE BLOOD COUNT 12.7 10^3/uL (4.3-11.0)
[2020-02-29] MEDS ORDERED: POLY17PO6 PO (14:58)
[2020-02-29 15:05] LABS: CHLORIDE 101 MMOL/L (98-107); POTASSIUM 3.9 MMOL/L (3.6-5.0); SODIUM 139 MMOL/L (135-145)
[2020-02-29 15:06] LABS: CALCIUM 9.2 MG/DL (8.5-10.1)
[2020-02-29 15:07] LABS: GLUCOSE 101 MG/DL (70-105); TOTAL PROTEIN 7.1 GM/DL (6.4-8.2)
[2020-02-29 15:08] LABS: CARBON DIOXIDE 27 MMOL/L (21-32)
[2020-02-29 15:09] LABS: BILIRUBIN,TOTAL 0.5 MG/DL (0.1-1.0)
[2020-02-29 15:10] LABS: ALKALINE PHOSPHATASE 79 U/L (40-136)
[2020-02-29 15:11] LABS: CREATININE SERUM 0.85 MG/DL (0.60-1.30); GFR ESTIMATED > 60
[2020-02-29 15:12] LABS: BUN/CREATININE RATIO 14
[2020-02-29 15:14] LABS: ALANINE AMINOTRANSFERASE 17 U/L (0-55); LIPASE 11 U/L (8-78)
[2020-02-29 15:32] VITALS: BP 133/99
[2020-02-29] MEDS ORDERED: ONDA8TAB13 PO (15:35)
== END 2020-02-29 15:36 | disposition home or self-care (01) ==
LOC: EDUNIT# 13:43 → ER 13:44
DX: K59.00 Constipation, unspecified (principal); K21.9 Gastro-esophageal reflux disease without esophagitis
CPT/HCPCS: 36415; 74176; 80053; 83690; 85025

== ENCOUNTER 2020-09-10 22:21 | Emergency (ER) | payer SELFPAY ==
[~2020-09-10] VITALS: Ht 182.8 cm; Wt 68.0 kg
[~2020-09-10 22:21] MED LIST changes: +ONDA8TAB13 PO; +POLY17PO6 PO
[2020-09-10] MEDS ORDERED: NITROGLYCERIN 0.4 MG SL TABS BTL 25'S SL ONE (22:33)
[2020-09-10] MEDS ORDERED: ASPIRIN 81 MG CHEW (CHILDREN'S ASA) ONE (22:33)
[2020-09-10] MEDS ORDERED: ASPIRIN 81 MG CHEW (CHILDREN'S ASA) PO ONE (22:45)
[2020-09-10] MEDS ORDERED: NITROGLYCERIN 0.4 MG SL TABS BTL 25'S SL PRN (22:45)
--- NOTE | 2020-09-10 22:49 | ED Chest Pain ---
General Stated Complaint: CHEST PAIN/SOA HEADACHE Source: patient Exam Limitations: no limitations History of Present Illness Date Seen by Provider: Sep 10, 2020 Time Seen by Provider: 22:31 Initial Comments Patient presents to the ER by private conveyance from home with chief complaint of substernal nonradiating chest pain worse on deep inspiration but not reproducible to direct palpation. He says it started about 45 minutes before he arrived. He says he was having this pain earlier today and went to the clinic but it went away by the time he got there so he went home. He has no personal history of coronary disease hypertension hyperlipidemia or diabetes. He does smoke cigarettes drink alcohol and has historically admitted to using methamphetamines as well as cannabis today. He denies any nausea fever or chills. He is not having any shortness of breath at rest. He has no history of lung disease. He has not been tested for any diseases recently but for the past 7 days he has been having headache, malaise and body aches as well as red eyes. He denies any significant discharge from the eyes. The patient says he had a Covid swab 2 days ago at the [facility] but has not received the results for it yet. Allergies and Home Medications Allergies Coded Allergies: No Known Drug Allergies (Unverified , 10/18/15) Home Medications Hydrocodone/Acetaminophen 1 Each Tablet, 1 EACH PO Q6H PRN for PAIN-MODERATE Prescribed by: AUGUSTO CARSON on 11/16/18 1415 Hydrocodone/Acetaminophen 1 Each Tablet, 1 EACH PO Q6H PRN for PAIN-MODERATE Prescribed by: AUGUSTO CARSON on 11/16/18 1456 Ondansetron 8 Mg Tab.rapdis, 8 MG PO Q4H PRN for NAUSEA-1ST LINE Prescribed by: AUGUSTO CARSON on 02/29/20 1535 Polyethylene Glycol 3350 17 Gm Powd.pack, 17 GM PO UD Prescribed by: AUGUSTO CARSON on 02/29/20 1458 Sucralfate 1 Gm Tablet, 1 GM PO QID Prescribed by: AUGUSTO CARSON on 10/18/15 1352 Patient Home Medication List Home Medication List Reviewed: Yes Review of Systems Review of Systems Constitutional: No chills, No fever; malaise; No weakness EENTM: No Blurred Vision, No Double Vision Respiratory: Denies Cough, Denies Shortness of Air Cardiovascular: See HPI, Chest Pain; Denies Edema Gastrointestinal: Denies Abdomen Distended, Denies Abdominal Pain Genitourinary: Denies Burning, Denies Discharge Musculoskeletal: No back pain, No joint pain Skin: No pruritus, No rash Psychiatric/Neurological: Denies Anxiety, Denies Depressed All Other Systems Reviewed Negative Unless Noted: Yes Past Oimqpkv-Uojbfx-Nocbwn Hx Patient Social History Alcohol Use: Denies Use Alcohol Beverage of Choice: Beer Recreational Drug Use: No Smoking Status: Never a Smoker Recent Hopitalizations: No Seasonal Allergies Seasonal Allergies: No Past Medical History Surgeries: Yes (RIGHT ELBOW HAS SCREWS) Orthopedic Respiratory: No Cardiac: No Neurological: No Reproductive Disorders: No Genitourinary: No Gastrointestinal: Yes Gastroesophageal Reflux Musculoskeletal: No Endocrine: No HEENT: No Cancer: No Psychosocial: No Integumentary: No Blood Disorders: No Physical Exam Vital Signs Vital Signs - First Documented 09/10/20 09/10/20 22:28 22:50 Temp 36.7 Pulse 95 Resp 18 B/P (MAP) 141/112 (122) Pulse Ox 95 O2 Delivery Room Air Capillary Refill : Height, Weight, BMI Height: 6'0" Weight: 150lbs. oz. [id number]; 19.00 BMI Method:Stated General Appearance: No Apparent Distress, WD/WN HEENT: PERRL/EOMI, Pharynx Normal, Moist Mucous Membranes Neck: Full Range of Motion, Normal Inspection Respiratory: Chest Non Tender, Lungs Clear, Normal Breath Sounds, No Accessory Muscle Use, No Respiratory Distress Cardiovascular: Regular Rate, Rhythm, No Edema, Normal Peripheral Pulses Gastrointestinal: Normal Bowel Sounds, Non Tender, Soft Extremity: Normal Capillary Refill, Normal Inspection, Normal Range of Motion, No Pedal Edema Neurologic/Psychiatric: Alert, Oriented x3, Normal Mood/Affect Skin: Normal Color, Warm/Dry Progress/Results/Core Measures Results/Orders Lab Results Laboratory Tests Test 09/10/20 20:40 09/10/20 22:45 09/11/20 00:26 Range/Units White Blood Count 13.8 H 4.3-11.0 10^3/uL Red Blood Count 4.15 L 4.30-5.52 10^6/uL Hemoglobin 13.3 13.3-17.7 g/dL Hematocrit 40 40-54 % Mean Corpuscular Volume 95 80-99 fL Mean Corpuscular Hemoglobin 32 25-34 pg Mean Corpuscular Hemoglobin Concent 34 32-36 g/dL Red Cell Distribution Width 12.7 10.0-14.5 % Platelet Count 536 H 130-400 10^3/uL Mean Platelet Volume 7.8 L 9.0-12.2 fL Immature Granulocyte % (Auto) 0 % Neutrophils (%) (Auto) 61 42-75 % Lymphocytes (%) (Auto) 21 12-44 % Monocytes (%) (Auto) 8 0-12 % Eosinophils (%) (Auto) 9 0-10 % Basophils (%) (Auto) 1 0-10 % Neutrophils # (Auto) 8.3 H 1.8-7.8 10^3/uL Lymphocytes # (Auto) 2.9 1.0-4.0 10^3/uL Monocytes # (Auto) 1.1 H 0.0-1.0 10^3/uL Eosinophils # (Auto) 1.3 H 0.0-0.3 10^3/uL Basophils # (Auto) 0.1 0.0-0.1 10^3/uL Immature Granulocyte # (Auto) 0.1 0.0-0.1 10^3/uL Prothrombin Time 12.8 12.2-14.7 SEC INR Comment 0.9 0.8-1.4 Activated Partial Thromboplast Time 34 24-35 SEC Sodium Level 136 135-145 MMOL/L Potassium Level 3.9 3.6-5.0 MMOL/L Chloride Level 100 98-107 MMOL/L Carbon Dioxide Level 24 21-32 MMOL/L Anion Gap 12 5-14 MMOL/L Blood Urea Nitrogen 15 7-18 MG/DL Creatinine 0.90 0.60-1.30 MG/DL Estimat Glomerular Filtration Rate > 60 BUN/Creatinine Ratio 17 Glucose Level 88 70-105 MG/DL Calcium Level 9.3 8.5-10.1 MG/DL Corrected Calcium 9.5 8.5-10.1 MG/DL Magnesium Level 2.2 1.6-2.4 MG/DL Total Bilirubin 0.2 0.1-1.0 MG/DL Aspartate Amino Transf (AST/SGOT) 18 5-34 U/L Alanine Aminotransferase (ALT/SGPT) 18 0-55 U/L Alkaline Phosphatase 91 40-136 U/L Myoglobin 27.9 10.0-92.0 NG/ML Troponin I < 0.028 < 0.028 <0.028 NG/ML B-Type Natriuretic Peptide 19.2 <100.0 PG/ML Total Protein 7.9 6.4-8.2 GM/DL Albumin 3.7 3.2-4.5 GM/DL Lipase 83 H 8-78 U/L Coronavirus 2019 (GABINO) Negative Negative Triglycerides Level 103 <150 MG/DL Cholesterol Level 145 < 200 MG/DL LDL Cholesterol Direct 97 1-129 MG/DL VLDL Cholesterol 21 5-40 MG/DL HDL Cholesterol 41 40-60 MG/DL Micro Results Microbiology 09/10/20 Influenza Types A,B Antigen (SOFIYA) - Final, Complete My Orders Orders - DIEGO OLVERA Nitroglycerin 0.4 Mg Btl 25's (Nitrostat (09/10/20 22:33) Aspirin Chewable Tablet (Baby Aspirin Ch (09/10/20 22:33) Cbc With Automated Diff (09/10/20 22:43) Magnesium (09/10/20 22:43) Chest 1 View, Ap/Pa Only (09/10/20 22:43) Ekg Tracing (09/10/20 22:43) Comprehensive Metabolic Panel (09/10/20 22:43) Myoglobin Serum (09/10/20 22:43) Protime With Inr (09/10/20 22:43) Partial Thromboplastin Time (09/10/20 22:43) O2 (09/10/20 22:43) Monitor-Rhythm Ecg Trace Only (09/10/20 22:43) Lipid Panel (09/11/20 06:00) Ed Iv/Invasive Line Start (09/10/20 22:43) Lipase (09/10/20 22:43) BNP (09/10/20 22:43) Troponin I (09/10/20 22:43) Nitroglycerin 0.4 Mg Btl 25's (Nitrostat (09/10/20 22:45) Aspirin Chewable Tablet (Baby Aspirin Ch (09/10/20 22:45) Troponin I (09/11/20 00:45) Covid 19 Inhouse Test (09/10/20 22:51) Influenza A And B Antigens (09/10/20 22:51) Albuterol/Ipra Inhalation Soln (Duoneb I (09/10/20 23:45) Svn Small Volume Nebulizer (09/10/20 23:32) Ketorolac Injection (Toradol Injection) (09/11/20 00:00) Medications Given in ED Current Medications Medications Dose Ordered Sig/Crow Route Start Time Stop Time Status Last Admin Dose Admin Albuterol/ Ipratropium 3 ml ONCE ONCE INH 09/10/20 23:45 09/10/20 23:46 DC 09/10/20 23:37 3 ML Aspirin 324 mg ONCE ONCE PO 09/10/20 22:45 09/10/20 22:46 DC 09/10/20 22:48 324 MG Ketorolac Tromethamine 30 mg ONCE ONCE IVP 09/11/20 00:00 09/11/20 00:01 DC 09/10/20 23:51 30 MG Nitroglycerin 0.4 mg UD PRN SL 09/10/20 22:45 09/10/20 22:48 0.4 MG Vital Signs/I&O 09/10/20 09/10/20 22:28 22:50 Temp 36.7 Pulse 95 91 Resp 18 18 B/P (MAP) 141/112 (122) 120/93 (102) Pulse Ox 95 O2 Delivery Room Air Room Air Progress Progress Note #1: Time: 22:57 Progress Note We gave him 324 mg of aspirin to protect him in case his coronary artery disease. Nitroglycerin did nothing for his pain and he is still 6 out of 10. I suspect he could have a pericarditis or pleurisy since his pain is worse on deep inspiration. After his troponin is back we will repeat another 1 in a couple hours and if it still negative I would recommend NSAIDs and follow-up outpatient. Progress Note #2: Time: 01:23 Progress Note Patient pain went away shortly after a shot of Toradol. His repeat troponin is still undetectable. He can follow-up outpatient with his primary care provider for pleurisy. Initial ECG Impression Date: Sep 10, 2020 Initial ECG Impression Time: 22:35 Initial ECG Rate: 96 Initial ECG Rhythm: Normal Sinus Initial ECG Intervals: QT (468) Initial ECG Impression: Normal Initial ECG Comparisson: No Previous ECG Available Comment Normal sinus rhythm without clinically relevant ST changes. Diagnostic Imaging Diagonstic Imaging: Xray Plain Films/CT/US/NM/MRI: chest Comments No acute cardiopulmonary process. Flattened diaphragms with hyper expansive lung zarco consistent with COPD. Reviewed: Reviewed by Me Departure Impression Primary Impression: Pleurisy Disposition: HOME, SELF-CARE Condition: Stable Departure-Patient Inst. Decision time for Depature: 01:24 Referrals: [facility] (PCP/Family) Primary Care Physician DOMENICA CANCHOLA MD [facility] Patient Instructions: Pleuritic Chest Pain (DC) Add. Discharge Instructions: Naproxen 1 tablet 500 mg twice a day as necessary for chest wall pain. Topical creams such as icy hot or Biofreeze might be helpful. Follow-up with your primary care provider if is not feeling better in the next week or 2. You may also follow-up with cardiology if you want help stratifying your risks for heart disease or stroke. You may call Dr. Canchola and request a follow-up appointment. Scripts Naproxen (Naprosyn) 500 Mg Tablet 500 MG PO BID for 14 Days, #30 TAB 0 Refills Prov: DIEGO OLVERA 09/11/20 Copy Copies To 1: DOMENICA CANCHOLA MD [facility] DIEGO OLVERA Sep 10, 2020 22:49
--- NOTE | 2020-09-10 22:50 | NUR ---
first nitro given for chest pain with a rating of 6/10
[2020-09-10 22:52] LABS: BASOPHILS # (AUTO) 0.1 10^3/uL (0.0-0.1); BASOPHILS % (AUTO) 1 % (0-10); EOSINOPHILS # (AUTO) 1.3 10^3/uL (0.0-0.3); EOSINOPHILS % (AUTO) 9 % (0-10); HEMATOCRIT 40 % (40-54); HEMOGLOBIN 13.3 g/dL (13.3-17.7); LYMPHOCYTES # (AUTO) 2.9 10^3/uL (1.0-4.0); LYMPHOCYTES % (AUTO) 21 % (12-44); MEAN CORPUSCULAR HEMOGLOBIN 32 pg (25-34); MEAN CORPUSCULAR HGB CONC 34 g/dL (32-36); MEAN CORPUSCULAR VOLUME 95 fL (80-99); MEAN PLATELET VOLUME 7.8 fL (9.0-12.2); MONOCYTES # (AUTO) 1.1 10^3/uL (0.0-1.0); MONOCYTES % (AUTO) 8 % (0-12); NEUTROPHILS # (AUTO) 8.3 10^3/uL (1.8-7.8); NEUTROPHILS % (AUTO) 61 % (42-75); PLATELET COUNT 536 10^3/uL (130-400); WHITE BLOOD COUNT 13.8 10^3/uL (4.3-11.0)
[2020-09-10 23:02] LABS: ALBUMIN 3.7 GM/DL (3.2-4.5); CHLORIDE 100 MMOL/L (98-107); INR 0.9 (0.8-1.4); POTASSIUM 3.9 MMOL/L (3.6-5.0); PROTHROMBIN TIME PATIENT 12.8 SEC (12.2-14.7); SODIUM 136 MMOL/L (135-145)
[2020-09-10 23:04] LABS: CALCIUM 9.3 MG/DL (8.5-10.1)
[2020-09-10 23:05] LABS: GLUCOSE 88 MG/DL (70-105); TOTAL PROTEIN 7.9 GM/DL (6.4-8.2)
[2020-09-10 23:06] LABS: CARBON DIOXIDE 24 MMOL/L (21-32)
[2020-09-10 23:07] LABS: BILIRUBIN,TOTAL 0.2 MG/DL (0.1-1.0)
[2020-09-10 23:08] LABS: ALKALINE PHOSPHATASE 91 U/L (40-136); GFR ESTIMATED > 60
[2020-09-10 23:09] LABS: BUN/CREATININE RATIO 17
[2020-09-10 23:11] LABS: ALANINE AMINOTRANSFERASE 18 U/L (0-55); MAGNESIUM 2.2 MG/DL (1.6-2.4)
[2020-09-10 23:12] LABS: LIPASE 83 U/L (8-78)
[2020-09-10] MEDS ORDERED: RT-ALBUTEROL/IPRATROPIUM 3 ML (DUONEB) VIAL INH ONE (23:45)
[2020-09-11] MEDS ORDERED: KETOROLAC 30 MG/ML VIAL IVP ONE
--- NOTE | 2020-09-11 00:25 | NUR ---
patient resting quietly at this time. call light within reach. denies needs. monitoring maintaied.
[2020-09-11 00:47] LABS: TRIGLYCERIDES 103 MG/DL (<150); VLDL CHOLESTEROL 21 MG/DL (5-40)
[2020-09-11 00:52] LABS: CHOLESTEROL 145 MG/DL (< 200); HDL CHOLESTEROL 41 MG/DL (40-60)
[2020-09-11] MEDS ORDERED: NAPR-1071 PO (01:25)
[2020-09-11 01:34] VITALS: BP 115/74
--- NOTE | 2020-09-11 06:14 | Diagnostic Imaging Report ---
Clinical indication: Patient with chest pain and shortness of air. Exam: Portable chest x-ray upright view. Comparisons: None. Findings: Lungs/pleura: There is mild airspace atelectasis versus infiltrate in the left lung base. Otherwise, lungs are clear. There is no pneumothorax. There is no pleural effusion. Mediastinum: Unremarkable. Pulmonary vasculature: Unremarkable. Heart: Unremarkable. Bones/extrathoracic soft tissue: Unremarkable. Impression: There is mild left basilar atelectasis versus infiltrate. Dictated by: Dictated on workstation # [id number]
== END 2020-09-11 01:34 | disposition home or self-care (01) ==
LOC: EDUNIT# 22:21 → ER 22:22
DX: R09.1 Pleurisy (principal); K21.9 Gastro-esophageal reflux disease without esophagitis; Z20.828 Contact with and (suspected) exposure to other viral communicable diseases; Z87.891 Personal history of nicotine dependence
CPT/HCPCS: 71045; 80053; 80061; 83690; 83735; 83874; 83880; 84484 ×2; 85025; 85610; 85730; 87804; 93041; 99284; U0002; 36415; 87635

== ENCOUNTER 2021-04-04 10:49 | Emergency (ER) | payer SELFPAY ==
[~2021-04-04] VITALS: Ht 182 cm; Wt 68.0 kg
[~2021-04-04 10:49] MED LIST changes: +NAPR-1071 PO
--- NOTE | 2021-04-04 11:25 | ED GI ---
General Chief Complaint: Abdominal/GI Problems Stated Complaint: CONSTIPATION,RECTAL PAIN Source of Information: Patient History of Present Illness Date Seen by Provider: Apr 04, 2021 Time Seen by Provider: 11:05 Initial Comments PT ARRIVES VIA POV FROM HOME C/O CONSTIPATION--NO BM X 1 WEEK HAS LONG HISTORY OF CHRONIC CONSTIPATION FOR MANY YEARS. STATES HE DOES NOT TAKE ANY MEDICATION FOR IT "BUT I'M SUPPOSED TO" STATES HE TRIED TO USE AN ENEMA AN HOUR AGO, BUT HE AND "COULDNT' GET IT ALL THE WAY IN" TRIED TO USE A SUPPOSITORY LAST NIGHT, BUT "IT WOULDN'T STAY IN" OTHERWISE HAS NOT TAKEN ANY THING ORALLY FOR CONSTIPATION OR TRIED ANYTHING ELSE RECTALLY FOR IT C/O MUCH RECTAL PAIN FROM STRAINING AND THINKS HE NOW HAS HEMORRHOIDS FROM IT NO RECTAL BLEEDING C/O ABDOMINAL FULLNESS, BUT NOT ABDOMINAL PAIN NO NAUSEA/VOMITING HAS HAD DECREASED FOOD INTAKE THE LAST COUPLE OF DAYS, STATES EVERY TIME HE EATS, IT GIVES HIM THE URGE TO HAVE A BM AND THEN CAN'T GO, SO HAS NOT BEEN EATING MUCH PT IS VOIDING NORMALLY HAS NOT SOUGHT CARE UNTIL TODAY STATES > 5 YEARS AGO, HE SAW AN UNKNOWN GI SPECIALIST IN [place] AND HAD A COLONOSCOPY FOR THIS PROBLEM--STATES HE WAS TOLD HE HAD "SEVERAL HUNDRED POLYPS" BUT THE ONES THAT WERE BIOPSIED WERE NEGATIVE FOR CANCER STATES HE WAS TOLD HE NEEDED YEARLY COLONOSCOPIES, BUT NEVER FOLLOWED UP WITH ANYONE NO PRIOR ABDOMINAL SURGERIES PCP: [facility] Allergies and Home Medications Allergies Coded Allergies: No Known Drug Allergies (Unverified , 10/18/15) Home Medications Hydrocodone/Acetaminophen 1 Each Tablet, 1 EACH PO Q6H PRN for PAIN-MODERATE Prescribed by: AUGUSTO CARSON on 11/16/18 1415 Hydrocodone/Acetaminophen 1 Each Tablet, 1 EACH PO Q6H PRN for PAIN-MODERATE Prescribed by: AUGUSTO CARSON on 11/16/18 1456 Lidocaine HCl 15 Ml Solution, 1-2 ML LA [id number] Prescribed by: NALINI PERERA on 04/04/21 1324 Naproxen 500 Mg Tablet, 500 MG PO BID Prescribed by: DIEGO OLVERA on 09/11/20 0125 Ondansetron 8 Mg Tab.rapdis, 8 MG PO Q4H PRN for NAUSEA-1ST LINE Prescribed by: AUGUSTO CARSON on 02/29/20 1535 Polyethylene Glycol 3350 17 Gm Powd.pack, 17 GM PO UD Prescribed by: AUGUSTO CARSON on 02/29/20 1458 Sucralfate 1 Gm Tablet, 1 GM PO QID Prescribed by: AUGUSTO CARSON on 10/18/15 1352 Patient Home Medication List Home Medication List Reviewed: Yes Review of Systems Review of Systems Constitutional: no symptoms reported Respiratory: No Symptoms Reported Cardiovascular: No Symptoms Reported Gastrointestinal: See HPI Genitourinary: No Symptoms Reported Musculoskeletal: no symptoms reported Skin: no symptoms reported Psychiatric/Neurological: No Symptoms Reported Endocrine: No Symptoms Reported Past Jvthokd-Yqhbsj-Xjhzvz Hx Patient Social History Tobacco Use?: Yes (1 PPD) Tobacco type used: Cigarettes Smoking Status: Current Everyday Smoker Substance use?: Yes Substance type: Methamphetamine Additional substance use comme: SMOKES METH Substance frequency: Several times a month Alcohol Use?: Yes Seasonal Allergies Seasonal Allergies: No Past Medical History Surgeries: Yes (RIGHT ELBOW FX/ORIF--HAS SCREWS IN PLACE) Orthopedic Respiratory: No Cardiac: No Neurological: No Reproductive Disorders: No Genitourinary: No Gastrointestinal: Yes Gastroesophageal Reflux, Chronic Constipation, Polyps Musculoskeletal: No Endocrine: No HEENT: No Cancer: No Psychosocial: Yes (SUBSTANCE ABUSE) Integumentary: No Blood Disorders: No Physical Exam Vital Signs Vital Signs - First Documented 04/04/21 11:17 Temp 36.6 Pulse 88 Resp 20 B/P (MAP) 127/95 (106) Pulse Ox 95 O2 Delivery Room Air Capillary Refill : Height/Weight/BMI Height: 6'0" Weight: 150lbs. oz. [id number]; 20.00 BMI Method:Stated General Appearance: WD/WN, no apparent distress Respiratory: normal breath sounds Cardiovascular: regular rate, rhythm Gastrointestinal: normal bowel sounds, non tender, soft Rectal: heme negative stool, other (PT WITH LARGE AMOUNT OF LOOSE STOOL SEEPING OUT FROM RECTUM. FEW FIRM, SMALL EXTERNAL HEMORRHOIDS NOTED. MODERATE AMOUNT OF FORMED STOOL IN RECTUM. 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, no motor/sensory deficits, alert, normal mood/affect, oriented x 3 Skin: normal color, warm/dry Progress/Results/Core Measures Results/Orders My Orders Orders - NALINI PERERA DO Acute Abd Series (04/04/21 11:07) Fecal Occult Bedside (04/04/21 11:14) Vital Signs/I&O 04/04/21 04/04/21 11:17 13:37 Temp 36.6 Pulse 88 92 Resp 20 18 B/P (MAP) 127/95 (106) 130/92 Pulse Ox 95 96 O2 Delivery Room Air Room Air Progress Progress Note : Progress Note MARKED DELAY IN OBTAINING XRAYS, DUE TO PT "NOT BEING READY TO GO YET" Diagnostic Imaging Comments ABDOMEN XRAYS--PER RADIOLOGIST REPORT AT 1316 FINDINGS: The lung volumes are normal. No focal consolidation is seen. No large pleural effusion or pneumothorax is seen. The cardiomediastinal silhouette is normal in size and contour. No acute osseous abnormality is seen. No evidence of bowel obstruction or large collections of free intraperitoneal air. A moderate amount of stool and air are seen throughout the colon. No abnormal calcifications are present in the abdomen and pelvis. No acute osseous abnormalities. IMPRESSION: 1. No acute pleuroparenchymal process. 2. Moderate amount of stool and air in the colon, likely representing constipation. Reviewed: Reviewed by Me Departure Communication (Admissions) 1320--SPOKE WITH DR. HERNANDEZ, SURGEON MANAGER BATTERY. HE WILL SEE PT IN FOLLOW UP FOR THIS PROBLEM AND TO ARRANGE FOR COLONOSCOPY Impression Primary Impression: Constipation Additional Impressions: Impacted stool in rectum REPORTED HISTORY OF COLON POLYPS Disposition: HOME, SELF-CARE Condition: Stable Departure-Patient Inst. Decision time for Depature: 13:15 Referrals: [facility] [place] (PCP/Family) Primary Care Physician DELGADO HERNANDEZ DO Patient Instructions: Fecal Impaction (DC), Constipation, Adult (DC) Add. Discharge Instructions: USE DULCOLAX SUPPOSITORIES AND FLEET'S ENEMAS FOR BM YOU MAY NEED TO MANUALLY DIS-IMPACT THE STOOL FROM YOUR RECTUM TAKE MIRALAX--1 CAPFUL IN 8 OZ OF WATER--EVERY 1-2 HOURS UNTIL YOUR BOWELS HAVE MOVED AND YOUR STOOLS ARE CLEAR AND YOUR BOWELS ARE EMPTY THEN BEGIN TAKING MIRALAX EVERY DAY FROM NOW ON FOLLOW UP WITH DR. HERNANDEZ, GENERAL SURGEON, THIS WEEK FOR FURTHER EVALUATION AND TO ARRANGE FOR COLONOSCOPY All discharge instructions reviewed with patient and/or family. Voiced understanding. Scripts Lidocaine HCl (Lidocaine HCl Viscous) 15 Ml Solution 1-2 ML LA [id number], #120 ML Prov: NALINI PERERA DO 04/04/21 NALINI PERERA DO Apr 04, 2021 11:25
--- NOTE | 2021-04-04 13:08 | Diagnostic Imaging Report ---
PATIENT HISTORY: Abdominal pain.. TECHNIQUE: 3 views of the chest and abdomen were obtained. COMPARISON: 09/10/2020. FINDINGS: The lung volumes are normal. No focal consolidation is seen. No large pleural effusion or pneumothorax is seen. The cardiomediastinal silhouette is normal in size and contour. No acute osseous abnormality is seen. No evidence of bowel obstruction or large collections of free intraperitoneal air. A moderate amount of stool and air are seen throughout the colon. No abnormal calcifications are present in the abdomen and pelvis. No acute osseous abnormalities. IMPRESSION: 1. No acute pleuroparenchymal process. 2. Moderate amount of stool and air in the colon, likely representing constipation. Dictated by: Dictated on workstation # [id number]
[2021-04-04] MEDS ORDERED: LIDO20SO23 PR (13:24)
[2021-04-04 13:37] VITALS: BP 130/92
== END 2021-04-04 13:37 | disposition home or self-care (01) ==
LOC: EDUNIT# 10:49 → ER 10:53
DX: K59.00 Constipation, unspecified (principal); F17.210 Nicotine dependence, cigarettes, uncomplicated
CPT/HCPCS: 74022; 82274

== ENCOUNTER 2021-04-07 04:19 | Emergency (ER) | payer SELFPAY ==
[~2021-04-07] VITALS: Ht 72 cm; Wt 150.0 kg
[~2021-04-07 04:19] MED LIST changes: +LIDO20SO23 PR
[2021-04-07 06:17] LABS: BASOPHILS # (AUTO) 0.1 10^3/uL (0.0-0.1); BASOPHILS % (AUTO) 0 % (0-10); EOSINOPHILS # (AUTO) 0.3 10^3/uL (0.0-0.3); EOSINOPHILS % (AUTO) 2 % (0-10); HEMATOCRIT 44 % (40-54); HEMOGLOBIN 14.3 g/dL (13.3-17.7); LYMPHOCYTES # (AUTO) 1.6 10^3/uL (1.0-4.0); LYMPHOCYTES % (AUTO) 11 % (12-44); MEAN CORPUSCULAR HEMOGLOBIN 32 pg (25-34); MEAN CORPUSCULAR HGB CONC 33 g/dL (32-36); MEAN CORPUSCULAR VOLUME 98 fL (80-99); MEAN PLATELET VOLUME 8.7 fL (9.0-12.2); MONOCYTES # (AUTO) 1.4 10^3/uL (0.0-1.0); MONOCYTES % (AUTO) 9 % (0-12); NEUTROPHILS % (AUTO) 76 % (42-75); PLATELET COUNT 411 10^3/uL (130-400); WHITE BLOOD COUNT 14.4 10^3/uL (4.3-11.0)
[2021-04-07 06:22] LABS: BILIRUBIN,URINE NEGATIVE (NEGATIVE); CLARITY,URINE CLEAR; COLOR,URINE YELLOW; GLUCOSE, URINE (UA) NEGATIVE (NEGATIVE); KETONES,URINE NEGATIVE (NEGATIVE); LEUKOCYTE ESTERASE ,URINE NEGATIVE (NEGATIVE); NITRITE,URINE NEGATIVE (NEGATIVE); PROTEIN,URINE NEGATIVE (NEGATIVE)
[2021-04-07 06:23] LABS: ALBUMIN 3.8 GM/DL (3.2-4.5); CHLORIDE 104 MMOL/L (98-107); POTASSIUM 4.5 MMOL/L (3.6-5.0); SODIUM 140 MMOL/L (135-145)
--- NOTE | 2021-04-07 06:23 | ED Abdominal Pain ---
General Chief Complaint: Back Problems Stated Complaint: BACK PAIN STRAINING TO POOP Nursing Triage Note: PATIENT STATES THREE DAYS AGO WAS TREATED FOR CONSTIPATION. STATES HAS NOT HAD A TRUE BM. STATES BACK PAIN STARTED YESTERDAY Source of Information: Patient Exam Limitations: No Limitations (TEQUILA HEDRICK MD) History of Present Illness Date Seen by Provider: Apr 07, 2021 Time Seen by Provider: 04:41 Initial Comments This 51-year-old gentleman presents to the emergency room with complaints of constipation and lower back pain. He was seen in this ER on April 04 for the same complaints[place] [facility] [place]itories, enemas, and MiraLAX without significant improvement he has passed some gas and some small quantities of watery stool. He denies any fever, nausea, vomiting, or significant abdominal pain. He does report a prior history of extensive polyposis on colonoscopy more than 5 years ago. He reports there were over 100 polyps present. (TEQUILA HEDRICK MD) Allergies and Home Medications Allergies Coded Allergies: No Known Drug Allergies (Unverified , 10/18/15) Home Medications Hydrocodone/Acetaminophen 1 Each Tablet, 1 EACH PO Q6H PRN for PAIN-MODERATE Prescribed by: AUGUSTO CARSON on 11/16/18 1415 Hydrocodone/Acetaminophen 1 Each Tablet, 1 EACH PO Q6H PRN for PAIN-MODERATE Prescribed by: AUGUSTO CARSON on 11/16/18 1456 Lidocaine HCl 15 Ml Solution, 1-2 ML NE [id number] Prescribed by: NALINI PERERA on 04/04/21 1324 Naproxen 500 Mg Tablet, 500 MG PO BID Prescribed by: DIEGO OLVERA on 09/11/20 0125 Ondansetron 8 Mg Tab.rapdis, 8 MG PO Q4H PRN for NAUSEA-1ST LINE Prescribed by: AUGUSTO CARSON on 02/29/20 1535 Ondansetron 4 Mg Tab.rapdis, 4 MG PO Q6H PRN for NAUSEA/VOMITING Prescribed by: DIEGO OLVERA on 04/07/21 0730 Polyethylene Glycol 3350 17 Gm Powd.pack, 17 GM PO UD Prescribed by: AUGUSTO CARSON on 02/29/20 1458 Sucralfate 1 Gm Tablet, 1 GM PO QID Prescribed by: AUGUSTO CARSON on 10/18/15 1352 Patient Home Medication List Home Medication List Reviewed: Yes (TEQUILA HEDRICK MD) Review of Systems Review of Systems Constitutional: no symptoms reported EENTM: No Symptoms Reported Respiratory: No Symptoms Reported Cardiovascular: No Symptoms Reported Gastrointestinal: See HPI Genitourinary: No Symptoms Reported Musculoskeletal: no symptoms reported Skin: no symptoms reported Psychiatric/Neurological: No Symptoms Reported Endocrine: No Symptoms Reported Hematologic/Lymphatic: No Symptoms Reported (TEQUILA HEDRICK MD) Past Itjkawp-Ttmozm-Etgopb Hx Patient Social History Tobacco Use?: Yes (TEQUILA HEDRICK MD) Seasonal Allergies Seasonal Allergies: No (TEQUILA HEDRICK MD) Past Medical History Surgery/Hospitalization HX: POLYPS Surgeries: Yes (RIGHT ELBOW FX/ORIF--HAS SCREWS IN PLACE) Orthopedic Respiratory: No Cardiac: No Neurological: No Reproductive Disorders: No Genitourinary: No Gastrointestinal: Yes Gastroesophageal Reflux, Chronic Constipation, Polyps Musculoskeletal: No Endocrine: No HEENT: No Cancer: No Psychosocial: Yes (SUBSTANCE ABUSE) Integumentary: No Blood Disorders: No (TEQUILA HEDRICK MD) Physical Exam Vital Signs Vital Signs - First Documented 04/07/21 04:28 Temp 36.8 Pulse 75 Resp 20 B/P (MAP) 116/92 (100) Pulse Ox 98 O2 Delivery Room Air (DIEGO OLVERA) Vital Signs Capillary Refill : Less Than 3 Seconds (TEQUILA HEDRICK MD) Height/Weight/BMI Height: 6'0" Weight: 150lbs. oz. 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, no motor/sensory deficits, alert, normal mood/affect, oriented x 3 Skin: normal color, warm/dry (TEQUILA HEDRICK MD) Progress/Results/Core Measures Results/Orders Lab Results Laboratory Tests Test 04/07/21 04:41 04/07/21 06:00 Range/Units White Blood Count 14.4 H 4.3-11.0 10^3/uL Red Blood Count 4.45 4.30-5.52 10^6/uL Hemoglobin 14.3 13.3-17.7 g/dL Hematocrit 44 40-54 % Mean Corpuscular Volume 98 80-99 fL Mean Corpuscular Hemoglobin 32 25-34 pg Mean Corpuscular Hemoglobin Concent 33 32-36 g/dL Red Cell Distribution Width 13.4 10.0-14.5 % Platelet Count 411 H 130-400 10^3/uL Mean Platelet Volume 8.7 L 9.0-12.2 fL Immature Granulocyte % (Auto) 1 % Neutrophils (%) (Auto) 76 H 42-75 % Lymphocytes (%) (Auto) 11 L 12-44 % Monocytes (%) (Auto) 9 0-12 % Eosinophils (%) (Auto) 2 0-10 % Basophils (%) (Auto) 0 0-10 % Neutrophils # (Auto) 11.0 H 1.8-7.8 10^3/uL Lymphocytes # (Auto) 1.6 1.0-4.0 10^3/uL Monocytes # (Auto) 1.4 H 0.0-1.0 10^3/uL Eosinophils # (Auto) 0.3 0.0-0.3 10^3/uL Basophils # (Auto) 0.1 0.0-0.1 10^3/uL Immature Granulocyte # (Auto) 0.1 0.0-0.1 10^3/uL Neutrophils % (Manual) 78 % Lymphocytes % (Manual) 11 % Monocytes % (Manual) 8 % Eosinophils % (Manual) 2 % Band Neutrophils 1 % Blood Morphology Comment NORMAL Sodium Level 140 135-145 MMOL/L Potassium Level 4.5 3.6-5.0 MMOL/L Chloride Level 104 98-107 MMOL/L Carbon Dioxide Level 25 21-32 MMOL/L Anion Gap 11 5-14 MMOL/L Blood Urea Nitrogen 13 7-18 MG/DL Creatinine 0.81 0.60-1.30 MG/DL Estimat Glomerular Filtration Rate > 60 BUN/Creatinine Ratio 16 Glucose Level 115 H 70-105 MG/DL Calcium Level 9.1 8.5-10.1 MG/DL Corrected Calcium 9.3 8.5-10.1 MG/DL Magnesium Level 2.2 1.6-2.4 MG/DL Total Bilirubin 0.3 0.1-1.0 MG/DL Aspartate Amino Transf (AST/SGOT) 20 5-34 U/L Alanine Aminotransferase (ALT/SGPT) 21 0-55 U/L Alkaline Phosphatase 81 40-136 U/L Total Protein 6.8 6.4-8.2 GM/DL Albumin 3.8 3.2-4.5 GM/DL Urine Color YELLOW Urine Clarity CLEAR Urine pH 6.0 5-9 Urine Specific [place] >=1.030 1.016-1.022 Urine Protein NEGATIVE NEGATIVE Urine Glucose (UA) NEGATIVE NEGATIVE Urine Ketones NEGATIVE NEGATIVE Urine Nitrite NEGATIVE NEGATIVE Urine Bilirubin NEGATIVE NEGATIVE Urine Urobilinogen 0.2 < = 1.0 MG/DL Urine Leukocyte Esterase NEGATIVE NEGATIVE Urine RBC (Auto) NEGATIVE NEGATIVE Urine RBC RARE /HPF Urine WBC RARE /HPF Urine Crystals NONE /LPF Urine Bacteria NEGATIVE /HPF Urine Casts NONE /LPF Urine Mucus SMALL H /LPF Urine Culture Indicated NO (DIEGO OLVERA) Medications Given in ED Current Medications Medications Dose Ordered Sig/Crow Route Start Time Stop Time Status Last Admin Dose Admin Iohexol 100 ml ONCE ONCE IV 04/07/21 07:00 04/07/21 07:01 DC 04/07/21 06:52 85 ML Sodium Chloride 10 ml NEEDED PRN IV 04/07/21 07:00 04/07/21 06:52 10 ML Sodium Chloride 100 ml ONCE ONCE IV 04/07/21 07:00 04/07/21 07:01 DC 04/07/21 06:52 80 ML (DIEGO OLVERA) Vital Signs/I&O 04/07/21 04:28 Temp 36.8 Pulse 75 Resp 20 B/P (MAP) 116/92 (100) Pulse Ox 98 O2 Delivery Room Air (DIEGO OLVERA) Blood Pressure Mean: 100 Progress Progress Note : Time: 06:23 Progress Note KUB and upright x-ray was reviewed. There seems to be some significant colonic dilatation. Because of patient's history of polyps and failure to resolve constipation with multiple treatments of laxatives, CT will be pursued. No air- fluid levels to suggest small bowel obstruction. (TEQUILA HEDRICK MD) Progress Note : Progress Note Assumed care of the patient at shift change. Reviewed history. Patient has a history of multiple polyps and difficult constipation so a CT has been ordered looking for obstruction. (DIEGO OLVERA) Diagnostic Imaging Diagonstic Imaging: Xray Plain Films/CT/US/NM/MRI: abdomen, pelvis Comments KUB and upright x-rays viewed by me and compared with prior. There appears to be constipation and colonic dilatation with stool and air. (TEQUILA HEDRICK MD) Comments [facility], [place] NAME: ISRAEL DYE MED REC#: [id number] PT STATUS: REG ER : 1970 PHYSICIAN: TEQUILA HEDRICK MD ADMIT DATE: 04/07/21/ER Draft Date of Exam:04/07/21 ABDOMEN, FLAT & UPRIGHT/DECUB Indication: Constipation Supine and upright views the abdomen shows air and fecal material scattered throughout the colon consistent with constipation. The small bowel is within normal limits. There is no intramural or free intraperitoneal air seen. There is no mass or calculus seen. There is no acute bony abnormality. Impression: Constipation. Dictated on workstation # [id number] Dict: 04/07/21 0639 Trans: 04/07/21 0651 [facility] [id number] Interpreted by: ISRAEL BULLOCK MD Electronically signed by: Diagonstic Imaging: CT Plain Films/CT/US/NM/MRI: abdomen, pelvis Comments NAME: MARNIEISRAEL Ruiz MED REC#: [id number] PT STATUS: REG ER : 1970 PHYSICIAN: TEQUILA HEDRICK MD ADMIT DATE: 04/07/21/ER Draft Date of Exam:04/07/21 CT ABDOMEN/PELVIS W PROCEDURE: CT abdomen and pelvis with contrast. TECHNIQUE: Multiple contiguous axial images were obtained through the abdomen and pelvis after administration of intravenous contrast. Auto Exposure Controls were utilized during the CT exam to meet ALARA standards for radiation dose reduction. All CT scans use one or more of the following dose optimizing techniques: automated exposure control, MA and/or KvP adjustment based on patient size and exam type or iterative reconstruction. INDICATION: Back pain. Constipation Comparison is made with a prior study from 02/29/2020. The lung bases are clear. The liver, gallbladder and bile ducts are normal. The spleen, pancreas and adrenals are normal. The kidneys, ureters and bladder are normal. Colon is distended with air and fecal material. No bowel wall edema is evident. There is abrupt narrowing at the level of the rectum with evidence of mild thickening which could be due to collapsed state and spasm but inflammation or neoplasm at this site cannot totally be excluded. The small bowel is within normal limits. There is no free intraperitoneal air or fluid. There is no adenopathy. There is no acute bony abnormality. IMPRESSION: The colon is distended with air and fecal material consistent with constipation. There is diffuse spasm and/or thickening of the rectum. Correlation with digital exam or endoscopy may be helpful. No other acute abnormality is evident. Dictated on workstation # [id number] Dict: 04/07/21714 Trans: 04/07/21 0723 [facility] [id number] Interpreted by: ISRAEL BULLOCK MD Electronically signed by: Reviewed: Reviewed by Me (DIEGO OLVERA) Departure Impression Primary Impression: Constipation Qualified Codes: K59.00 - Constipation, unspecified Disposition: HOME, SELF-CARE Condition: Stable Departure-Patient Inst. Decision time for Depature: 07:25 (DIEGO OLVERA) [facility]errals: [facility] [place] Primary Care Physician Patient Instructions: Constipation, Adult (DC) Add. Discharge Instructions: You need to continue with MiraLAX 1 capful in 6 to 8 ounces of fluid of your choice at least 4 times a day for the next several days. Follow-up with your primary care doctor to discuss setting up colonoscopy. Gas-X may be helpful to relieve some of your abdominal discomfort. Zofran 1 tablet under the tongue every 6 hours as necessary for nausea and/or vomiting. All discharge instructions reviewed with patient and/or family. Voiced understanding. Scripts Ondansetron (Ondansetron Odt) 4 Mg Tab.rapdis 4 MG PO Q6H PRN for NAUSEA/VOMITING, #8 TAB 0 Refills Prov: DIEGO OLVERA 04/07/21 Work/School Note: Work Release Form Date Seen in the Emergency Department: Apr 07, 2021 Return to Work: Apr 10, 2021 Restrictions: No Restrictions Copy Copies To 1: FARAZ KENNEDY JOSHUA T MD Apr 07, 2021 06:22 DIEGO OLVERA Apr 07, 2021 07:02
[2021-04-07 06:25] LABS: CALCIUM 9.1 MG/DL (8.5-10.1)
[2021-04-07 06:26] LABS: GLUCOSE 115 MG/DL (70-105); TOTAL PROTEIN 6.8 GM/DL (6.4-8.2)
[2021-04-07 06:27] LABS: CARBON DIOXIDE 25 MMOL/L (21-32)
[2021-04-07 06:28] LABS: BILIRUBIN,TOTAL 0.3 MG/DL (0.1-1.0)
[2021-04-07 06:29] LABS: ALKALINE PHOSPHATASE 81 U/L (40-136); CREATININE SERUM 0.81 MG/DL (0.60-1.30); GFR ESTIMATED > 60
[2021-04-07 06:31] LABS: BUN/CREATININE RATIO 16
[2021-04-07 06:32] LABS: ALANINE AMINOTRANSFERASE 21 U/L (0-55); BAND NEUTROPHILS 1 %; EOSINOPHILS % (MANUAL) 2 %; LYMPHOCYTES % (MANUAL) 11 %; MAGNESIUM 2.2 MG/DL (1.6-2.4); MONOCYTES % (MANUAL) 8 %; NEUTROPHILS % (MANUAL) 78 %; RBC MORPH NORMAL
[2021-04-07 06:35] LABS: BACTERIA,URINE NEGATIVE /HPF; RBC,URINE RARE /HPF; WBC,URINE RARE /HPF
--- NOTE | 2021-04-07 06:52 | Diagnostic Imaging Report ---
Indication: Constipation Supine and upright views the abdomen shows air and fecal material scattered throughout the colon consistent with constipation. The small bowel is within normal limits. There is no intramural or free intraperitoneal air seen. There is no mass or calculus seen. There is no acute bony abnormality. Impression: Constipation. Dictated by: Dictated on workstation # [id number]
[2021-04-07] MEDS ORDERED: HOLD METFORMIN - RECEIVED CONTRAST 20 ML VIAL IV SCH (07:00)
[2021-04-07] MEDS ORDERED: NS 100 ML (IVPB) BAG IV ONE (07:00)
[2021-04-07] MEDS ORDERED: IOHEXOL 350 MG/ML 100 ML (OMNIPAQUE 350) VIAL IV ONE (07:00)
[2021-04-07] MEDS ORDERED: CATHETER FLUSH 10 ML SYR IV PRN (07:00)
--- NOTE | 2021-04-07 07:23 | Diagnostic Imaging Report ---
PROCEDURE: CT abdomen and pelvis with contrast. TECHNIQUE: Multiple contiguous axial images were obtained through the abdomen and pelvis after administration of intravenous contrast. Auto Exposure Controls were utilized during the CT exam to meet ALARA standards for radiation dose reduction. All CT scans use one or more of the following dose optimizing techniques: automated exposure control, MA and/or KvP adjustment based on patient size and exam type or iterative reconstruction. INDICATION: Back pain. Constipation Comparison is made with a prior study from 02/29/2020. The lung bases are clear. The liver, gallbladder and bile ducts are normal. The spleen, pancreas and adrenals are normal. The kidneys, ureters and bladder are normal. Colon is distended with air and fecal material. No bowel wall edema is evident. There is abrupt narrowing at the level of the rectum with evidence of mild thickening which could be due to collapsed state and spasm but inflammation or neoplasm at this site cannot totally be excluded. The small bowel is within normal limits. There is no free intraperitoneal air or fluid. There is no adenopathy. There is no acute bony abnormality. IMPRESSION: The colon is distended with air and fecal material consistent with constipation. There is diffuse spasm and/or thickening of the rectum. Correlation with digital exam or endoscopy may be helpful. No other acute abnormality is evident. Dictated by: Dictated on workstation # [id number]
[2021-04-07] MEDS ORDERED: ONDA4TAB11 PO (07:30)
[2021-04-07 07:36] VITALS: BP 139/81
== END 2021-04-07 07:36 | disposition home or self-care (01) ==
LOC: EDUNIT# 04:19 → ER 04:22
DX: K59.00 Constipation, unspecified (principal); K21.9 Gastro-esophageal reflux disease without esophagitis; Z79.899 Other long term (current) drug therapy
CPT/HCPCS: 36415; 74019; 74177; 80053; 81000; 83735; 85007; 85027

== ENCOUNTER 2022-11-26 18:22 | Emergency (ER) | payer SELFPAY ==
[~2022-11-26] VITALS: Ht 182 cm; Wt 65.8 kg
[~2022-11-26 18:22] MED LIST changes: +LIDO15SO6 PR; -LIDO20SO23 PR; +ONDA4TAB11 PO
[2022-11-26 18:49] VITALS: BP 103/70
[2022-11-26] MEDS ORDERED: CLINDAMYCIN 600 MG/50 ML IVPB 50 ML IV ONE (19:00)
[2022-11-26 19:10] LABS: BASOPHILS # (AUTO) 0.1 10^3/uL (0.0-0.1); BASOPHILS % (AUTO) 0 % (0-10); EOSINOPHILS # (AUTO) 0.2 10^3/uL (0.0-0.3); EOSINOPHILS % (AUTO) 1 % (0-10); HEMATOCRIT 46 % (40-54); HEMOGLOBIN 16.1 g/dL (13.3-17.7); LYMPHOCYTES # (AUTO) 1.3 10^3/uL (1.0-4.0); LYMPHOCYTES % (AUTO) 6 % (12-44); MEAN CORPUSCULAR HEMOGLOBIN 33 pg (25-34); MEAN CORPUSCULAR HGB CONC 35 g/dL (32-36); MEAN CORPUSCULAR VOLUME 93 fL (80-99); MEAN PLATELET VOLUME 8.2 fL (9.0-12.2); MONOCYTES # (AUTO) 1.6 10^3/uL (0.0-1.0); MONOCYTES % (AUTO) 7 % (0-12); NEUTROPHILS # (AUTO) 18.5 10^3/uL (1.8-7.8); NEUTROPHILS % (AUTO) 85 % (42-75); PLATELET COUNT 416 10^3/uL (130-400); WHITE BLOOD COUNT 21.8 10^3/uL (4.3-11.0)
--- NOTE | 2022-11-26 19:11 | ED Upper Extremity ---
General Chief Complaint: Skin/Wound Problems Stated Complaint: LEFT UPPER EXTREMITY Nursing Triage Note: pt was working on a ceiling yesterday when he thinks he got bit by a spider on his left hand. he woke up this morning with a swollen and red hand with streaks going up his arm. pt reports he has felt feverish all day but was normothermic at triage. Source: patient Exam Limitations: no limitations History of Present Illness Date Seen by Provider: Nov 26, 2022 Time Seen by Provider: 18:56 Allergies and Home Medications Allergies Coded Allergies: No Known Drug Allergies (Unverified , 10/18/15) Patient Home Medication List Home Medication List Reviewed: Yes Clindamycin HCl (Clindamycin HCl) 150 Mg Capsule, 300 MG PO TID Prescribed by: NOEL SANTIAGO MD on 11/26/221951 Hydrocodone/Acetaminophen (Hydrocodone/Acetaminophen 5 MG/325 MG TAB) 1 Each Tablet, 1 EACH PO Q6H PRN for PAIN-MODERATE Prescribed by: AUGUSTO CARSON on 11/16/18 1415 Hydrocodone/Acetaminophen (Hydrocodone/Acetaminophen 5 MG/325 MG TAB) 1 Each Tablet, 1 EACH PO Q6H PRN for PAIN-MODERATE Prescribed by: AUGUSTO CARSON on 11/16/18 1456 Lidocaine HCl (Lidocaine HCl Viscous) 15 Ml Solution, 1-2 ML NV [id number] Prescribed by: NALINI PERERA on 04/04/21 1324 Naproxen (Naprosyn) 500 Mg Tablet, 500 MG PO BID Prescribed by: DIEGO OLVERA on 09/11/20 0125 Ondansetron (Ondansetron Odt) 8 Mg Tab.rapdis, 8 MG PO Q4H PRN for NAUSEA-1ST LINE Prescribed by: AUGUSTO CARSON on 02/29/20 1535 Ondansetron (Ondansetron Odt) 4 Mg Tab.rapdis, 4 MG PO Q6H PRN for NAUSEA/VOMITING Prescribed by: DIEGO OLVERA on 04/07/21 0730 Polyethylene Glycol 3350 (Miralax) 17 Gm Powd.pack, 17 GM PO UD Prescribed by: AUGUSTO CARSON on 02/29/20 1458 Sucralfate (Carafate) 1 Gm Tablet, 1 GM PO QID Prescribed by: AUGUSTO CARSON on 10/18/15 1352 Review of Systems Constitutional: no symptoms reported Past Jkgzjdj-Rbypow-Tsfoqi Hx Patient Social History Tobacco Use?: Yes Use of E-Cig and/or Vaping dev: No Substance use?: No Alcohol Use?: No Seasonal Allergies Seasonal Allergies: No Past Medical History Surgery/Hospitalization HX: POLYPS Surgeries: Yes (RIGHT ELBOW FX/ORIF--HAS SCREWS IN PLACE) Orthopedic Respiratory: No Cardiac: No Neurological: No Reproductive Disorders: No Genitourinary: No Gastrointestinal: Yes Gastroesophageal Reflux, Chronic Constipation, Polyps Musculoskeletal: No Endocrine: No HEENT: No Cancer: No Psychosocial: Yes (SUBSTANCE ABUSE) Integumentary: No Blood Disorders: No Physical Exam Vital Signs Vital Signs - First Documented 11/26/22 18:49 Temp 37.0 Pulse 92 Resp 18 B/P (MAP) 103/70 (81) Pulse Ox 98 O2 Delivery Room Air Capillary Refill : Less Than 3 Seconds Height, Weight, BMI Height: 6'0" Weight: 150lbs. oz. 68.814572ge; 19.00 BMI Method:Stated General Appearance: WD/WN, no apparent distress HEENT: normal ENT inspection, pharynx normal Neck: full range of motion, normal inspection Cardiovascular: regular rate, rhythm, no murmur Respiratory: chest non-tender, normal breath sounds, no respiratory distress, no accessory muscle use Gastrointestinal: normal bowel sounds, non tender, soft, no organomegaly Back: normal inspection, no vertebral tenderness Hand: swelling (Left hand is swollen erythematous, especially near the base of the thumb. There is no circumferential swelling, no evidence for flexor tenosynovitis. Neurovascular motor and sensory intact. There is erythema that streaks up his medial forearm to his proximal arm. He does have some axillary lymphadenopathy.) Neurologic/Psychiatric: alert, oriented x 3 Skin: other (As described above) Progress/Results/Core Measures Results/Orders Lab Results Laboratory Tests Test 11/26/22 19:00 Range/Units White Blood Count 21.8 H 4.3-11.0 10^3/uL Red Blood Count 4.95 4.30-5.52 10^6/uL Hemoglobin 16.1 13.3-17.7 g/dL Hematocrit 46 40-54 % Mean Corpuscular Volume 93 80-99 fL Mean Corpuscular Hemoglobin 33 25-34 pg Mean Corpuscular Hemoglobin Concent 35 32-36 g/dL Red Cell Distribution Width 13.3 10.0-14.5 % Platelet Count 416 H 130-400 10^3/uL Mean Platelet Volume 8.2 L 9.0-12.2 fL Immature Granulocyte % (Auto) 1 % Neutrophils (%) (Auto) 85 H 42-75 % Lymphocytes (%) (Auto) 6 L 12-44 % Monocytes (%) (Auto) 7 0-12 % Eosinophils (%) (Auto) 1 0-10 % Basophils (%) (Auto) 0 0-10 % Neutrophils # (Auto) 18.5 H 1.8-7.8 10^3/uL Lymphocytes # (Auto) 1.3 1.0-4.0 10^3/uL Monocytes # (Auto) 1.6 H 0.0-1.0 10^3/uL Eosinophils # (Auto) 0.2 0.0-0.3 10^3/uL Basophils # (Auto) 0.1 0.0-0.1 10^3/uL Immature Granulocyte # (Auto) 0.2 H 0.0-0.1 10^3/uL Neutrophils % (Manual) 86 % Lymphocytes % (Manual) 5 % Monocytes % (Manual) 8 % Band Neutrophils 1 % Blood Morphology Comment NORMAL Sodium Level 138 135-145 MMOL/L Potassium Level 4.1 3.6-5.0 MMOL/L Chloride Level 102 98-107 MMOL/L Carbon Dioxide Level 24 21-32 MMOL/L Anion Gap 12 5-14 MMOL/L Blood Urea Nitrogen 22 H 7-18 MG/DL Creatinine 1.00 0.60-1.30 MG/DL Estimat Glomerular Filtration Rate 91 BUN/Creatinine Ratio 22 Glucose Level 108 H 70-105 MG/DL Calcium Level 9.6 8.5-10.1 MG/DL My Orders Orders - JACKNOEL Hastings DO Ed Iv/Invasive Line Start (11/26/22 18:51) Cbc And Manual Diff (11/26/22 18:51) Basic Metabolic Panel (11/26/22 18:51) Clindamycin 600 Mg/50 Ml Ivpb (Cleocin P (11/26/22 19:00) Vital Signs/I&O Blood Pressure Mean: 81 Departure Communication (Admissions) Patient is hemodynamically stable, nontoxic. Does have significant leukocytosis. He definitely has cellulitis that is pretty significant in his left hand and streaking up his left mid arm and has some axillary adenopathy. Discussed initially possible admission however the patient is adamant that he does not want to stay in the hospital. I do think he would be okay with a trial for outpatient antibiotics and I do think he is reliable to come back if necessary. I did tell him this could be a serious infection, especially in the hands and then if his symptoms worsen in any way he should return to the emergency department immediately. He states understanding. I have advised him to come back to the emergency department in 48 hours regardless for a recheck of his hand. He is given an IV dose of clindamycin here and then discharged with p.o. clindamycin. Recommended ibuprofen and Tylenol for pain. Impression Primary Impression: Cellulitis Qualified Codes: L03.114 - Cellulitis of left upper limb Disposition: HOME, SELF-CARE Condition: Stable Departure-Patient Inst. Referrals: [facility] [place] (PCP/Family) Primary Care Physician Patient Instructions: Cellulitis (Skin Infection), Adult ED Add. Discharge Instructions: As discussed it is very important that you follow this closely as the infection can become severe. You were given your first dose of antibiotics in IV form today. 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 Please return to the emergency department in 48 hours for recheck of your symptoms. Return sooner if your symptoms are worsening or changing in any way concerning to you. Use ibuprofen and Tylenol as needed for pain. All discharge instructions reviewed with patient and/or family. Voiced understanding. Scripts Clindamycin HCl (Clindamycin HCl) 150 Mg Capsule 300 MG PO TID for 10 Days, #60 CAP Prov: NOEL SANTIAGO DO 11/26/22 NEOL SANTIAGO DO Nov 26, 2022 19:11
[2022-11-26 19:45] LABS: POTASSIUM 4.1 MMOL/L (3.6-5.0)
[2022-11-26 19:47] LABS: BAND NEUTROPHILS 1 %; CALCIUM 9.6 MG/DL (8.5-10.1); LYMPHOCYTES % (MANUAL) 5 %; MONOCYTES % (MANUAL) 8 %; NEUTROPHILS % (MANUAL) 86 %; RBC MORPH NORMAL
[2022-11-26] MEDS ORDERED: CLIN150C20 PO (19:52)
== END 2022-11-26 20:37 | disposition home or self-care (01) ==
LOC: EDUNIT# 18:22 → ER 18:25
DX: L03.114 Cellulitis of left upper limb (principal); D72.829 Elevated white blood cell count, unspecified
CPT/HCPCS: 36415; 80048; 85007; 85027

== ENCOUNTER 2022-11-27 12:07 | Emergency (ER) | payer SELFPAY ==
[~2022-11-27 12:07] MED LIST changes: +CLIN150C20 PO
[2022-11-27] MEDS ORDERED: CLINDAMYCIN 600 MG/50 ML IVPB 50 ML IV ONE (12:45)
[2022-11-27] MEDS ORDERED: NS IV 1000 ML 1,000 ML IV SCH (12:45)
--- NOTE | 2022-11-27 12:45 | ED Integumentary General ---
General Chief Complaint: Skin/Wound Problems Stated Complaint: LEFT HAND RECHECK Source: patient Exam Limitations: no limitations History of Present Illness Date Seen by Provider: Nov 27, 2022 Time Seen by Provider: 12:31 Initial Comments 52-year-old male presents with redness and swelling to his left hand. He was seen yesterday for this as well, states he was told to come back if the swelling and redness got worse. He was given a dose of IV clindamycin here last night, and discharged with a prescription. States he picked it up this morning and took the first dose roughly 30 minutes prior to arrival. Reports the swelling is worse, and now the redness goes up into his forearm, where previously it was only in his hand. He did have streaking up his arm, states that has improved, but there is redness in his upper arm as well. Also complaining of pain and some swelling in his left axillary. Reports subjective fevers and chills. States he has been sleeping a lot over the last couple of days. Denies any past medical history, does not take any medications. He does smoke cigarettes, drink alcohol, and use meth. Denies chest pain, shortness of air, abdominal pain, nausea, vomiting, diarrhea. Allergies and Home Medications Allergies Coded Allergies: No Known Drug Allergies (Unverified , 10/18/15) Patient Home Medication List Home Medication List Reviewed: Yes Clindamycin HCl (Clindamycin HCl) 150 Mg Capsule, 300 MG PO TID Prescribed by: NOEL SANTIAGO MD on 11/26/221951 Hydrocodone/Acetaminophen (Hydrocodone/Acetaminophen 5 MG/325 MG TAB) 1 Each Tablet, 1 EACH PO Q6H PRN for PAIN-MODERATE Prescribed by: AUGUSTO CARSON on 11/16/18 1415 Hydrocodone/Acetaminophen (Hydrocodone/Acetaminophen 5 MG/325 MG TAB) 1 Each Tablet, 1 EACH PO Q6H PRN for PAIN-MODERATE Prescribed by: AUGUSTO CARSON on 11/16/18 1456 Lidocaine HCl (Lidocaine HCl Viscous) 15 Ml Solution, 1-2 ML [place] [id number] Prescribed by: NALINI PERERA on 04/04/21 1324 Naproxen (Naprosyn) 500 Mg Tablet, 500 MG PO BID Prescribed by: DIEGO OLVERA on 09/11/20 0125 Ondansetron (Ondansetron Odt) 8 Mg Tab.rapdis, 8 MG PO Q4H PRN for NAUSEA-1ST LINE Prescribed by: AUGUSTO CARSON on 02/29/20 1535 Ondansetron (Ondansetron Odt) 4 Mg Tab.rapdis, 4 MG PO Q6H PRN for NAUSEA/VOMITING Prescribed by: DIEGO OLVERA on 04/07/21 0730 Polyethylene Glycol 3350 (Miralax) 17 Gm Powd.pack, 17 GM PO UD Prescribed by: AUGUSTO CARSON on 02/29/20 1458 Sucralfate (Carafate) 1 Gm Tablet, 1 GM PO QID Prescribed by: AUGUSTO CARSON on 10/18/15 1352 Review of Systems Review of Systems Constitutional: see HPI Past Culnicr-Cpmupf-Cerblg Hx Patient Social History Tobacco Use?: Yes Tobacco type used: Cigarettes Substance use?: Yes Substance type: Methamphetamine, Marijuana Alcohol Use?: Yes Pt feels they are or have been: No Seasonal Allergies Seasonal Allergies: No Past Medical History Surgery/Hospitalization HX: POLYPS Surgeries: Yes (RIGHT ELBOW FX/ORIF--HAS SCREWS IN PLACE) Orthopedic Respiratory: No Cardiac: No Neurological: No Reproductive Disorders: No Genitourinary: No Gastrointestinal: Yes Gastroesophageal Reflux, Chronic Constipation, Polyps Musculoskeletal: No Endocrine: No HEENT: No Cancer: No Psychosocial: Yes (SUBSTANCE ABUSE) Integumentary: No Blood Disorders: No Physical Exam Vital Signs Vital Signs - First Documented 11/27/22 12:22 Temp 36.9 Pulse 86 Resp 20 B/P (MAP) 117/79 (92) Capillary Refill : General Appearance: WD/WN, no apparent distress Neck: supple, normal inspection Cardiovascular: regular rate, rhythm, no edema, no gallop, no JVD, no murmur Respiratory: lungs clear, normal breath sounds, no respiratory distress, no accessory muscle use Extremities: other (Decreased range of motion of left hand, swelling, erythema to the left hand and arm.) Neurologic/Psychiatric: alert, normal mood/affect, oriented x 3 Skin: normal color, warm/dry, other (Erythema, swelling to left hand and arm, erythema also noted on left fourth finger around nail.) Skin Problem Location: upper extremities Skin Problem Character: erythema, other (induration of the hand, fingers, no area of fluctuation) Lymphatic: axilla node tender (L) Progress/Results/Core Measures Results/Orders Lab Results Laboratory Tests Test 11/27/22 12:50 Range/Units White Blood Count 21.3 H 4.3-11.0 10^3/uL Red Blood Count 4.54 4.30-5.52 10^6/uL Hemoglobin 14.7 13.3-17.7 g/dL Hematocrit 43 40-54 % Mean Corpuscular Volume 94 80-99 fL Mean Corpuscular Hemoglobin 32 25-34 pg Mean Corpuscular Hemoglobin Concent 35 32-36 g/dL Red Cell Distribution Width 13.6 10.0-14.5 % Platelet Count 379 130-400 10^3/uL Mean Platelet Volume 8.4 L 9.0-12.2 fL Immature Granulocyte % (Auto) 1 % Neutrophils (%) (Auto) 82 H 42-75 % Lymphocytes (%) (Auto) 8 L 12-44 % Monocytes (%) (Auto) 6 0-12 % Eosinophils (%) (Auto) 3 0-10 % Basophils (%) (Auto) 0 0-10 % Neutrophils # (Auto) 17.5 H 1.8-7.8 10^3/uL Lymphocytes # (Auto) 1.7 1.0-4.0 10^3/uL Monocytes # (Auto) 1.2 H 0.0-1.0 10^3/uL Eosinophils # (Auto) 0.7 H 0.0-0.3 10^3/uL Basophils # (Auto) 0.1 0.0-0.1 10^3/uL Immature Granulocyte # (Auto) 0.2 H 0.0-0.1 10^3/uL Neutrophils % (Manual) 85 % Lymphocytes % (Manual) 11 % Monocytes % (Manual) 3 % Eosinophils % (Manual) 1 % Basophils % (Manual) 0 % Band Neutrophils 0 % Blood Morphology Comment NORMAL Prothrombin Time 13.6 12.2-14.7 SEC INR Comment 1.0 0.8-1.4 Activated Partial Thromboplast Time 32 24-35 SEC Sodium Level 138 135-145 MMOL/L Potassium Level 3.9 3.6-5.0 MMOL/L Chloride Level 104 98-107 MMOL/L Carbon Dioxide Level 23 21-32 MMOL/L Anion Gap 11 5-14 MMOL/L Blood Urea Nitrogen 20 H 7-18 MG/DL Creatinine 0.88 0.60-1.30 MG/DL Estimat Glomerular Filtration Rate 103 BUN/Creatinine Ratio 23 Glucose Level 142 H 70-105 MG/DL Lactic Acid Level 1.06 0.50-2.00 MMOL/L Calcium Level 9.0 8.5-10.1 MG/DL Corrected Calcium 9.2 8.5-10.1 MG/DL Total Bilirubin 0.3 0.1-1.0 MG/DL Aspartate Amino Transf (AST/SGOT) 21 5-34 U/L Alanine Aminotransferase (ALT/SGPT) 20 0-55 U/L Alkaline Phosphatase 85 40-136 U/L Total Protein 7.1 6.4-8.2 GM/DL Albumin 3.7 3.2-4.5 GM/DL My Orders Orders - RICA BRICEÑO APRN Cbc With Automated Diff (11/27/22 12:37) Comprehensive Metabolic Panel (11/27/22 12:37) Blood Culture (11/27/22 12:37) Protime With Inr (11/27/22 12:37) Partial Thromboplastin Time (11/27/22 12:37) Ed Iv/Invasive Line Start (11/27/22 12:37) Lactic Acid Analyzer (11/27/22 12:37) Ns Iv 1000 Ml (Sodium Chloride 0.9%) (11/27/22 12:45) Clindamycin 600 Mg/50 Ml Ivpb (Cleocin P (11/27/22 12:45) Manual Differential (11/27/22 12:50) Forearm, Left, 2 Views (11/27/22 14:17) Hand, Left, 3 Views (11/27/22 14:28) Medications Given in ED Current Medications Medications Dose Ordered Sig/Crow Route Start Time Stop Time Status Last Admin Dose Admin Clindamycin Phosphate/Dextrose 50 ml @ 100 mls/hr ONCE ONCE IV 11/27/22 12:45 11/27/22 13:15 DC 11/27/22 13:00 100 MLS/HR Vital Signs/I&O 11/27/22 11/27/22 12:22 16:20 Temp 36.9 36.9 Pulse 86 84 Resp 20 18 B/P (MAP) 117/79 (92) 111/82 Progress Progress Note #1: Time: 12:46 Progress Note Patient seen and evaluated, resting comfortably, no acute distress. Based on exam and symptoms, concern for cellulitis, sepsis. Work-up initiated including CBC, CMP, blood cultures x2, lactic acid, coags. IV fluids and antibiotic ordered. Progress Note #2: Time: 13:41 Progress Note Labs reviewed. CBC shows elevated WBC 21.3, elevated neutrophil 82. CMP shows slightly elevated BUN 20, creatinine is normal at 0.8, GFR normal 103, glucose elevated 142. Lactic acid normal 1.06. Coags negative. Spoke with Dr. [place], hospitalist, regarding admission. She recommends I consult with Dr. Cunningham first before she admits. Spoke with Dr. Cunningham, surgery, regarding patient. He is not comfortable with patient staying here because he does not do any surgeries of the hand. He recommends transferring patient to a location that has a hand specialist. Progress Note #3: Progress Note 1406 called [facility] in [place] for transfer, they do not have a hand surgeon. 1408 called [facility] in [place] and [place]. [place] does not have a hand surgeon. [place] does not have any beds available till tomorrow. 1412 called for transfer. They state that they will get back with me. 1440 Dr. Parsons at accepted patient for transfer. Waiting for bed assignment this time. They request that we fax vital signs and labs. Progress Note #4: Time: 15:04 Progress Note X-ray reviewed. 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 Diagnostic Imaging Diagonstic Imaging: Xray Plain Films/CT/US/NM/MRI: forearm, hand Comments [facility], [place] NAME: ISRAEL DYE [facility] REC#: [id number] PT STATUS: REG ER : 1970 PHYSICIAN: RICA BRICEÑO APRN ADMIT DATE: 11/27/22/ER Signed Date of Exam:11/27/22 HAND, LEFT, 3 VIEWS CLINICAL INDICATION: Patient with forearm pain. EXAMS: 1: X-ray of the left forearm, 2 views. 2: X-ray of the left hand, 3 views. COMPARISON: None. FINDINGS: X-rays of the left hand and left forearm show no acute fracture or dislocation. There is soft tissue swelling dorsal to the metacarpal bones. There is no soft tissue air or radiodense foreign object. There are hypertrophic spurs involving the 1st CMC joint. Remainder of the carpal bones show no other significant abnormality. Elbow is unremarkable. There is no elbow effusion seen. IMPRESSION: 1: X-rays of the left hand and left forearm show no acute fracture or dislocation. There is soft tissue swelling dorsal to the metacarpal regions. 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 Dictated by: Dictated on workstation # [id number] Dict: 11/27/22 1442 Trans: 11/27/22 1452 [id number] Interpreted by: ALTAF GUZMAN MD Electronically signed by: ALTAF GUZMAN MD 11/27/22 1452 Departure Impression Primary Impression: Cellulitis Qualified Codes: L03.114 - Cellulitis of left upper limb Disposition: XFER SHT-TRM HOSP Condition: Stable Transfer Transfer Reason: Exceeds level of care Time Spoke to Accepting Phy: 14:[address] Parsons, hand surgeon, at accepted patient for transfer. Transfer Time: 15:02 Transfer Facility: [facility] Departure-Patient Inst. Referrals: [facility] [place] Primary Care Physician RICA BRICEÑO APRN Nov 27, 2022 12:45
[2022-11-27 13:05] LABS: BASOPHILS # (AUTO) 0.1 10^3/uL (0.0-0.1); BASOPHILS % (AUTO) 0 % (0-10); EOSINOPHILS # (AUTO) 0.7 10^3/uL (0.0-0.3); EOSINOPHILS % (AUTO) 3 % (0-10); HEMATOCRIT 43 % (40-54); HEMOGLOBIN 14.7 g/dL (13.3-17.7); LYMPHOCYTES # (AUTO) 1.7 10^3/uL (1.0-4.0); LYMPHOCYTES % (AUTO) 8 % (12-44); MEAN CORPUSCULAR HEMOGLOBIN 32 pg (25-34); MEAN CORPUSCULAR HGB CONC 35 g/dL (32-36); MEAN CORPUSCULAR VOLUME 94 fL (80-99); MEAN PLATELET VOLUME 8.4 fL (9.0-12.2); MONOCYTES # (AUTO) 1.2 10^3/uL (0.0-1.0); MONOCYTES % (AUTO) 6 % (0-12); NEUTROPHILS # (AUTO) 17.5 10^3/uL (1.8-7.8); NEUTROPHILS % (AUTO) 82 % (42-75); PLATELET COUNT 379 10^3/uL (130-400); WHITE BLOOD COUNT 21.3 10^3/uL (4.3-11.0)
[2022-11-27 13:19] LABS: ALBUMIN 3.7 GM/DL (3.2-4.5); POTASSIUM 3.9 MMOL/L (3.6-5.0)
[2022-11-27 13:21] LABS: TOTAL PROTEIN 7.1 GM/DL (6.4-8.2)
[2022-11-27 13:23] LABS: BILIRUBIN,TOTAL 0.3 MG/DL (0.1-1.0); PROTHROMBIN TIME PATIENT 13.6 SEC (12.2-14.7)
[2022-11-27 13:25] LABS: CREATININE SERUM 0.88 MG/DL (0.60-1.30)
[2022-11-27 13:32] LABS: BAND NEUTROPHILS 0 %; BASOPHILS % (MANUAL) 0 %; EOSINOPHILS % (MANUAL) 1 %; LYMPHOCYTES % (MANUAL) 11 %; MONOCYTES % (MANUAL) 3 %; NEUTROPHILS % (MANUAL) 85 %; RBC MORPH NORMAL
--- NOTE | 2022-11-27 14:50 | Diagnostic Imaging Report ---
CLINICAL INDICATION: Patient with forearm pain. EXAMS: 1: X-ray of the left forearm, 2 views. 2: X-ray of the left hand, 3 views. COMPARISON: None. FINDINGS: X-rays of the left hand and left forearm show no acute fracture or dislocation. There is soft tissue swelling dorsal to the metacarpal bones. There is no soft tissue air or radiodense foreign object. There are hypertrophic spurs involving the 1st CMC joint. Remainder of the carpal bones show no other significant abnormality. Elbow is unremarkable. There is no elbow effusion seen. IMPRESSION: 1: X-rays of the left hand and left forearm show no acute fracture or dislocation. There is soft tissue swelling dorsal to the metacarpal regions. 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 Dictated by: Dictated on workstation # [id number]
[2022-11-27 16:20] VITALS: BP 111/82
== END 2022-11-27 16:22 | disposition short-term general hospital (02) ==
LOC: EDUNIT# 12:07 → ER 12:09
DX: L03.114 Cellulitis of left upper limb (principal); F17.210 Nicotine dependence, cigarettes, uncomplicated
CPT/HCPCS: 36415; 73090; 73130; 80053; 83605; 85007; 85027; 85610; 85730; 87040

== ENCOUNTER 2022-12-05 17:23 | Emergency (ER) | payer SELFPAY ==
[~2022-12-05] VITALS: Ht 182 cm; Wt 70.0 kg
[2022-12-05 18:35] LABS: BASOPHILS # (AUTO) 0.1 10^3/uL (0.0-0.1); BASOPHILS % (AUTO) 0 % (0-10); EOSINOPHILS # (AUTO) 0.6 10^3/uL (0.0-0.3); EOSINOPHILS % (AUTO) 3 % (0-10); HEMATOCRIT 46 % (40-54); HEMOGLOBIN 16.2 g/dL (13.3-17.7); LYMPHOCYTES # (AUTO) 2.2 10^3/uL (1.0-4.0); LYMPHOCYTES % (AUTO) 12 % (12-44); MEAN CORPUSCULAR HEMOGLOBIN 32 pg (25-34); MEAN CORPUSCULAR HGB CONC 35 g/dL (32-36); MEAN CORPUSCULAR VOLUME 91 fL (80-99); MEAN PLATELET VOLUME 8.2 fL (9.0-12.2); MONOCYTES # (AUTO) 1.3 10^3/uL (0.0-1.0); MONOCYTES % (AUTO) 7 % (0-12); NEUTROPHILS # (AUTO) 13.9 10^3/uL (1.8-7.8); NEUTROPHILS % (AUTO) 76 % (42-75); PLATELET COUNT 571 10^3/uL (130-400); WHITE BLOOD COUNT 18.2 10^3/uL (4.3-11.0)
[2022-12-05 18:37] LABS: BILIRUBIN,URINE NEGATIVE (NEGATIVE); CLARITY,URINE CLEAR; COLOR,URINE YELLOW; GLUCOSE, URINE (UA) NEGATIVE (NEGATIVE); KETONES,URINE NEGATIVE (NEGATIVE); LEUKOCYTE ESTERASE ,URINE NEGATIVE (NEGATIVE); NITRITE,URINE NEGATIVE (NEGATIVE); PROTEIN,URINE NEGATIVE (NEGATIVE)
[2022-12-05 18:42] LABS: ALBUMIN 4.3 GM/DL (3.2-4.5); POTASSIUM 4.2 MMOL/L (3.6-5.0)
[2022-12-05 18:43] LABS: CALCIUM 10.2 MG/DL (8.5-10.1)
[2022-12-05 18:44] LABS: TOTAL PROTEIN 8.4 GM/DL (6.4-8.2)
--- NOTE | 2022-12-05 18:44 | ED Abdominal Pain ---
General Chief Complaint: Abdominal/GI Problems Stated Complaint: ABDOMINAL PAIN Nursing Triage Note: PT AMB TO TRIAGE CO OF UPPER ABD PAIN STARTED APPROX 3 DAYS AGO, PT STATES UNABLE TO EAT OR DRINK. PT CO OF N/V. RATES PAIN 10/10. PT HAS RECENTLY BEEN IN FOR HAND INFECTION. PT HAS NOT HAD BM FOR APPROX FOR A COUPLE WEEKS Source of Information: Patient Exam Limitations: No Limitations History of Present Illness Date Seen by Provider: Dec 05, 2022 Time Seen by Provider: 18:20 Initial Comments This 52-year-old gentleman presents to the emergency room with complaints of upper abdominal pain, nausea, and vomiting. He reports vomiting anytime he attempts to eat or drink anything. This has been ongoing for about 3 days. He recently had surgery for an infection of the left hand at [facility]. He was discharged December 02, 3 days ago. He has not had a bowel movement in over a week. He reports history of a pancreas problem, possibly pancreatitis. He also has history of colon polyps. He has not had endoscopy in several years. He does not have a primary care provider but has a pending appointment to establish care at [facility]. He does smoke tobacco and marijuana. He rarely uses alcohol. He denies any other drug use. He took oxycodone at home prior to coming to the hospital. He reports pain is presently 8/10. Allergies and Home Medications Allergies Coded Allergies: No Known Drug Allergies (Unverified , 10/18/15) Patient Home Medication List Home Medication List Reviewed: Yes Clindamycin HCl (Clindamycin HCl) 150 Mg Capsule, 300 MG PO TID Prescribed by: NOEL SANTIAGO MD on 11/26/221951 Hydrocodone/Acetaminophen (Hydrocodone/Acetaminophen 5 MG/325 MG TAB) 1 Each Tablet, 1 EACH PO Q6H PRN for PAIN-MODERATE Prescribed by: AUGUSTO CARSON on 11/16/18 141 Hydrocodone/Acetaminophen (Hydrocodone/Acetaminophen 5 MG/325 MG TAB) 1 Each Tablet, 1 EACH PO Q6H PRN for PAIN-MODERATE Prescribed by: AUGUSTO CARSON on 11/16/18 145 Lidocaine HCl (Lidocaine HCl Viscous) 15 Ml Solution, 1-2 ML CO [id number] Prescribed by: NALINI PERERA on 04/04/21 1324 Metoclopramide HCl (Reglan) 5 Mg Tablet, 5 MG PO Q6H PRN for CONSTIPATION-2ND LINE Prescribed by: TEQUILA LUCIA on 12/05/222116 Naproxen (Naprosyn) 500 Mg Tablet, 500 MG PO BID Prescribed by: DIEGO OLVERA on 09/11/20 0125 Omeprazole (Omeprazole) 20 Mg Tablet.dr, 20 MG PO BID Prescribed by: TEQUILA LUCIA on 12/05/222116 Ondansetron (Ondansetron Odt) 8 Mg Tab.rapdis, 8 MG PO Q4H PRN for NAUSEA-1ST LINE Prescribed by: AUGUSTO CARSON on 02/29/20 1535 Ondansetron (Ondansetron Odt) 4 Mg Tab.rapdis, 4 MG PO Q6H PRN for NAUSEA/VOMITING Prescribed by: DIEGO OLVERA on 04/07/21 0730 Ondansetron (Ondansetron Odt) 4 Mg Tab.rapdis, 4 MG SL Q4H PRN for N AUSEA/VOMITING Prescribed by: TEQUILA LUCIA on 12/05/222116 Polyethylene Glycol 3350 (Miralax) 17 Gm Powd.pack, 17 GM PO UD Prescribed by: AUGUSTO CARSON on 02/29/20 1458 Polyethylene Glycol 3350 (Miralax) 17 Gram/Dose Powder, 119 GM PO UD Prescribed by: TEQUILA LUCIA on 12/05/222115 Sucralfate (Carafate) 1 Gm Tablet, 1 GM PO QID Prescribed by: AUGUSTO CARSON on 10/18/15 1352 Review of Systems Review of Systems Constitutional: chills; No fever EENTM: No Symptoms Reported Respiratory: No Symptoms Reported Cardiovascular: No Symptoms Reported Gastrointestinal: See HPI Genitourinary: No Symptoms Reported Musculoskeletal: see HPI Skin: see HPI Psychiatric/Neurological: No Symptoms Reported Endocrine: No Symptoms Reported Hematologic/Lymphatic: No Symptoms Reported Past Qfzsdsq-Amuuqn-Bnpekq Hx Patient Social History Tobacco Use?: Yes Tobacco type used: Cigarettes Smoking Status: Current Everyday Smoker Use of E-Cig and/or Vaping dev: No Substance use?: Yes Substance type: Marijuana Alcohol Use?: Yes Alcohol Frequency: Once in a while Immunizations Up To Date Influenza Vaccine Up-to-Date: Yes; Up-to-Date First/Initial COVID19 Vaccinat: YES Second COVID19 Vaccination Robbie: YES Seasonal Allergies Seasonal Allergies: No Past Medical History Surgery/Hospitalization HX: POLYPS, R HAND INFECTION, Surgeries: Yes (RIGHT ELBOW FX/ORIF--HAS SCREWS IN PLACE) Abdominal (Colonoscopy), Orthopedic (Elbow fracture, infection of the left hand) Respiratory: No Cardiac: No Neurological: No Reproductive Disorders: No Genitourinary: No Gastrointestinal: Yes Gastroesophageal Reflux, Chronic Constipation, Pancreatitis ("Pancreas problem"), Polyps Musculoskeletal: No Endocrine: No HEENT: No Cancer: No Psychosocial: Yes (SUBSTANCE ABUSE) Integumentary: No Blood Disorders: No Physical Exam Vital Signs Vital Signs - First Documented 12/05/22 12/05/22 17:24 21:12 Temp 36.4 Pulse 87 Resp 18 B/P (MAP) 137/101 (113) Pulse Ox 93 O2 Delivery Room Air Capillary Refill : Less Than 3 Seconds Height/Weight/BMI Height: 6'0" Weight: 150lbs. oz. [id number]; 21.00 BMI Method:Stated General Appearance: WD/WN, mild distress, thin HEENT: PERRL/EOMI, normal ENT inspection, other (Mucous membranes dry) Neck: normal inspection Respiratory: lungs clear, normal breath sounds, no respiratory distress Cardiovascular: regular rate, rhythm, no edema, no murmur Gastrointestinal: soft, abnormal bowel sounds (Decrease); No distended (Flat abdomen); tenderness (Throughout the upper abdomen and most prominent in the epigastrium) Extremities: non-tender, normal inspection, no pedal edema, other (Left hand and wrist in the splint and dressing) Neurologic/Psychiatric: no motor/sensory deficits, alert, normal mood/affect, oriented x 3 Skin: normal color, warm/dry Progress/Results/Core Measures Results/Orders Lab Results Laboratory Tests Test 12/05/22 18:00 Range/Units White Blood Count 18.2 H 4.3-11.0 10^3/uL Red Blood Count 5.06 4.30-5.52 10^6/uL Hemoglobin 16.2 13.3-17.7 g/dL Hematocrit 46 40-54 % Mean Corpuscular Volume 91 80-99 fL Mean Corpuscular Hemoglobin 32 25-34 pg Mean Corpuscular Hemoglobin Concent 35 32-36 g/dL Red Cell Distribution Width 13.0 10.0-14.5 % Platelet Count 571 H 130-400 10^3/uL Mean Platelet Volume 8.2 L 9.0-12.2 fL Immature Granulocyte % (Auto) 1 % Neutrophils (%) (Auto) 76 H 42-75 % Lymphocytes (%) (Auto) 12 12-44 % Monocytes (%) (Auto) 7 0-12 % Eosinophils (%) (Auto) 3 0-10 % Basophils (%) (Auto) 0 0-10 % Neutrophils # (Auto) 13.9 H 1.8-7.8 10^3/uL Lymphocytes # (Auto) 2.2 1.0-4.0 10^3/uL Monocytes # (Auto) 1.3 H 0.0-1.0 10^3/uL Eosinophils # (Auto) 0.6 H 0.0-0.3 10^3/uL Basophils # (Auto) 0.1 0.0-0.1 10^3/uL Immature Granulocyte # (Auto) 0.1 0.0-0.1 10^3/uL Neutrophils % (Manual) 79 % Lymphocytes % (Manual) 13 % Monocytes % (Manual) 6 % Eosinophils % (Manual) 2 % Blood Morphology Comment NORMAL Urine Color YELLOW Urine Clarity CLEAR Urine pH 6.0 5-9 Urine Specific Cay[place] <=1.005 1.016-1.022 Urine Protein NEGATIVE NEGATIVE Urine Glucose (UA) NEGATIVE NEGATIVE Urine Ketones NEGATIVE NEGATIVE Urine Nitrite NEGATIVE NEGATIVE Urine Bilirubin NEGATIVE NEGATIVE Urine Urobilinogen 0.2 < = 1.0 MG/DL Urine Leukocyte Esterase NEGATIVE NEGATIVE Urine RBC (Auto) NEGATIVE NEGATIVE Urine RBC NONE /HPF Urine WBC 2-5 /HPF Urine Squamous Epithelial Cells 2-5 /HPF Urine Crystals NONE /LPF Urine Bacteria TRACE /HPF Urine Casts NONE /LPF Urine Mucus NEGATIVE /LPF Urine Culture Indicated NO Sodium Level 136 135-145 MMOL/L Potassium Level 4.2 3.6-5.0 MMOL/L Chloride Level 102 98-107 MMOL/L Carbon Dioxide Level 21 21-32 MMOL/L Anion Gap 13 5-14 MMOL/L Blood Urea Nitrogen 22 H 7-18 MG/DL Creatinine 0.89 0.60-1.30 MG/DL Estimat Glomerular Filtration Rate 103 BUN/Creatinine Ratio 25 Glucose Level 105 70-105 MG/DL Calcium Level 10.2 H 8.5-10.1 MG/DL Corrected Calcium 10.0 8.5-10.1 MG/DL Total Bilirubin 0.5 0.1-1.0 MG/DL Aspartate Amino Transf (AST/SGOT) 29 5-34 U/L Alanine Aminotransferase (ALT/SGPT) 38 0-55 U/L Alkaline Phosphatase 88 40-136 U/L C-Reactive Protein High Sensitivity 0.55 H 0.00-0.50 MG/DL Total Protein 8.4 H 6.4-8.2 GM/DL Albumin 4.3 3.2-4.5 GM/DL Lipase 9 8-78 U/L My Orders Orders - TEQUILA HEDRICK MD Cbc With Automated Diff (12/05/22 18:10) Comprehensive Metabolic Panel (12/05/22 18:10) Hs C Reactive Protein (12/05/22 18:10) Lipase (12/05/22 18:10) Manual Differential (12/05/22 18:00) Ondansetron Injection (Zofran Injectio (12/05/22 18:45) Fentanyl Inj (Sublimaze Injection) (12/05/22 18:45) Lactated Ringers (Lr 1000 Ml Iv Solution (12/05/22 18:45) Lidocaine 2% Viscous 15 Ml (Xylocaine Vi (12/05/22 19:15) Antacid Suspension (Mylanta Suspension (12/05/22 19:15) Ct Abdomen/Pelvis W (12/05/22 20:03) Iohexol Injection (Omnipaque 350 Mg/Ml 1 (12/05/22 20:30) Received Contrast (Hold Metformin- Contr (12/05/22 20:30) Ns (Ivpb) (Sodium Chloride 0.9% Ivpb Bag (12/05/22 20:30) Pantoprazole Injection (Protonix Injecti (12/05/22 21:15) Ketorolac Injection (Toradol Injection) (12/05/22 21:15) Metoclopramide Injection (Reglan Injecti (12/05/22 21:15) Medications Given in ED Vital Signs/I&O 12/05/22 12/05/22 17:24 21:12 Temp 36.4 Pulse 87 81 Resp 18 18 B/P (MAP) 137/101 (113) 153/96 Pulse Ox 93 97 O2 Delivery Room Air Blood Pressure Mean: 113 Progress Progress Note #1: Time: 18:46 Progress Note Patient has been interviewed and examined. Labs are in progress. He will be treated with IV fluids, Zofran, and fentanyl. Further work-up and treatment will be determined based on lab results and response to treatment. Progress Note #2: Time: 20:02 Progress Note Patient reports pain prior to GI cocktail was a 9/10 and reduced to 8/10 after GI cocktail. Since he did not have a significant reduction in pain, we will further evaluate his abdomen with a CT scan. Labs were reviewed in their entirety including CBC, CRP, lipase, and urinalysis. Labs were unremarkable except for WBC of 18,000. Progress Note #3: Progress Note CT was obtained and report was reviewed. There was evidence of constipation and or postoperative ileus as well as thickening of the gastric tissue suggestive of gastritis. Patient was further treated with Toradol and Protonix. Referral to a surgeon was recommended. Treatment for constipation with MiraLAX was recommended. Dr. Hernandez, general surgeon on-call, was consulted by phone. We discussed the plan and suitability for disposition to home with outpatient follow-up. See discharge instructions for further discussion. Diagnostic Imaging Plain Films/CT/US/NM/MRI: abdomen, pelvis Comments NAME: ISRAEL DYE MED REC#: [id number] PT STATUS: REG ER : 1970 PHYSICIAN: TEQUILA HEDRICK MD ADMIT DATE: 12/05/22/ER Signed Date of Exam:12/05/22 CT ABDOMEN/PELVIS W PROCEDURE: CT abdomen and pelvis with contrast. TECHNIQUE: Multiple contiguous axial images were obtained through the abdomen and pelvis after administration of intravenous contrast. Auto Exposure Controls were utilized during the CT exam to meet ALARA standards for radiation dose reduction. All CT scans use one or more of the following dose optimizing techniques: automated exposure control, MA and/or KvP adjustment based on patient size and exam type or iterative reconstruction. INDICATION: 52-year-old male with upper abdominal pain for 3 days. Patient reports nausea and vomiting and is unable to eat. COMPARISONS: 04/07/2021 FINDINGS: The lung bases show minimal atelectasis in the right costophrenic recess but no confluent consolidations. Cardiac contour is normal. Liver shows uniform attenuation. Gallbladder is nondistended. Spleen is normal. There is some mucosal thickening at the GE junction. The stomach is normal. There is some prominence at the pyloric region with some mucosal thickening. The duodenal sweep is unremarkable. Pancreas shows sharp margins. Adrenals are normal. Kidneys appear normal in size, composition and contour with symmetrical perfusion of contrast. There is no evidence of obstructive uropathy. Both ureters are seen intermittently through their course and appear unremarkable. Partially filled bladder is also normal. Nonopacified loops of small bowel show some fluid-filled loops with a few scattered air-fluid levels. There is a large quantity of fecal material in the colon up to the splenic flexure. There is no free air, free fluid or adenopathy. Visualized vasculature shows normal caliber of the aorta, iliac and femoral femoral arteries with a few nonaneurysmal calcifications. There is normal origin of the visceral arteries. Bone windows show no overall gross abnormalities. IMPRESSION: 1. There is mucosal thickening in the gastric antrum and pylorus. In addition, there is also mucosal thickening of the GE junction. Correlation with endoscopy is recommended. 2. colon with a large quantity of fecal material in the colon up to the splenic flexure. 3. There are fluid-filled loops of small bowel with air-fluid levels. Ileus versus partial obstruction is within the differential. Perhaps a small bowel follow-through may be of further value. 4. Additional nonemergent findings, as described above. Dictated by: Dictated on workstation # [id number] Dict: 12/05/222028 Trans: 12/05/222103 [facility] [id number] Interpreted by: EMILY CRYSTAL MD Electronically signed by: EMILY CRYSTAL MD 12/05/222103 Departure Impression Primary Impression: Postoperative ileus Additional Impressions: Constipation Qualified Codes: K59.00 - Constipation, unspecified Upper abdominal pain Abnormal CT of the abdomen Nausea & vomiting Qualified Codes: R11.2 - Nausea with vomiting, unspecified Disposition: HOME, SELF-CARE Condition: Improved Departure-Patient Inst. Referrals: [facility] (PCP/Family) Primary Care Physician DELGADO HERNANDEZ DO Patient Instructions: Abdominal Pain, Adult ED, Clear Liquid Diet, Postoperative Ileus Add. Discharge Instructions: Adhere to a clear liquid diet for 48 hours. Information on a clear liquid diet is provided below. After 48 hours you may gradually advance your diet with small quantities of bland food as tolerated as long as you are passing bowel movements and gas. Avoid the following after your clear liquid diet: Eating large meals, eating close to bedtime, caffeine, carbonation, citrus fruits and juices, tomato products, chocolate, alcohol, tobacco, mints, spicy foods, fatty/greasy foods, NSAID medications such as ibuprofen or naproxen, or anything else you know irritates your stomach. Avoid excessive meats, cheeses, processed foods, and fast foods as they may worsen constipation. Eat plenty of fruits, vegetables, and whole grains. Use the medications as prescribed. Use Zofran (ondansetron) as prescribed for primary control of nausea and vomiting. Add Reglan (metoclopramide) for nausea and vomiting not well controlled by Zofran. You may continue using your pain medication as previously prescribed. Use only enough pain medication to make your pain tolerable as further use of opioid pain medications may worsen your constipation and ileus. Keep your appointment with the primary care provider. Discussed the results of your CT scan with your doctor at that appointment. Also schedule a follow-up appointment with Dr. Hernandez to arrange endoscopy (scoping of your stomach). Return to care if you have worsening or unimproving symptoms despite following these instructions. All discharge instructions reviewed with patient and/or family. Voiced understanding. Scripts Omeprazole (Omeprazole) 20 Mg Tablet. 20 MG PO BID, #60 TAB Prov: TEQUILA HEDRICK MD 12/05/22 Metoclopramide HCl (Reglan) 5 Mg Tablet 5 MG PO Q6H PRN for CONSTIPATION-2ND LINE, #10 TAB Prov: TEQUILA HEDRICK MD 12/05/22 Ondansetron (Ondansetron Odt) 4 Mg Tab.rapdis 4 MG SL Q4H PRN for NAUSEA/VOMITING, #10 TAB Prov: TEQUILA HEDRICK MD 12/05/22 Polyethylene Glycol 3350 (Miralax) 17 Gram/Dose Powder 119 GM PO UD, #2 EA Mixed 238 g of polyethylene glycol in 64 ounces of Gatorade. Drink as rapidly as tolerated. Prov: TEQUILA HEDRICK MD 12/05/22 Copy Copies To 1: [facility] Copies To 2: DELGADO HERNANDEZ JOSHUA T MD Dec 05, 2022 18:44
[2022-12-05] MEDS ORDERED: LACTATED RINGERS 1,000 ML IV ONE (18:45)
[2022-12-05] MEDS ORDERED: fentaNYL INJ 100 MCG/2 ML AMP IVP ONE (18:45)
[2022-12-05] MEDS ORDERED: ONDANSETRON 4 MG/2 ML (SDV) Z0FRAN IVP ONE (18:45)
[2022-12-05 18:46] LABS: BILIRUBIN,TOTAL 0.5 MG/DL (0.1-1.0)
[2022-12-05 18:47] LABS: BACTERIA,URINE TRACE /HPF
[2022-12-05 18:48] LABS: CREATININE SERUM 0.89 MG/DL (0.60-1.30)
[2022-12-05 18:55] LABS: NEUTROPHILS % (MANUAL) 79 %
[2022-12-05 18:57] LABS: EOSINOPHILS % (MANUAL) 2 %; LYMPHOCYTES % (MANUAL) 13 %; MONOCYTES % (MANUAL) 6 %; RBC MORPH NORMAL
[2022-12-05] MEDS ORDERED: LIDOCAINE 2% VISCOUS 15 ML UDC PO ONE (19:15)
[2022-12-05] MEDS ORDERED: ANTACID SUSP 30 ML UDC (MYLANTA) PO ONE (19:15)
[2022-12-05] MEDS ORDERED: NS 100 ML (IVPB) BAG IV ONE (20:30)
[2022-12-05] MEDS ORDERED: HOLD METFORMIN - RECEIVED CONTRAST 20 ML VIAL IV SCH (20:30)
[2022-12-05] MEDS ORDERED: IOHEXOL 350 MG/ML 100 ML (OMNIPAQUE 350) VIAL IV ONE (20:30)
--- NOTE | 2022-12-05 20:52 | Diagnostic Imaging Report ---
PROCEDURE: CT abdomen and pelvis with contrast. TECHNIQUE: Multiple contiguous axial images were obtained through the abdomen and pelvis after administration of intravenous contrast. Auto Exposure Controls were utilized during the CT exam to meet ALARA standards for radiation dose reduction. All CT scans use one or more of the following dose optimizing techniques: automated exposure control, MA and/or KvP adjustment based on patient size and exam type or iterative reconstruction. INDICATION: 52-year-old male with upper abdominal pain for 3 days. Patient reports nausea and vomiting and is unable to eat. COMPARISONS: 04/07/2021 FINDINGS: The lung bases show minimal atelectasis in the right costophrenic recess but no confluent consolidations. Cardiac contour is normal. Liver shows uniform attenuation. Gallbladder is nondistended. Spleen is normal. There is some mucosal thickening at the GE junction. The stomach is normal. There is some prominence at the pyloric region with some mucosal thickening. The duodenal sweep is unremarkable. Pancreas shows sharp margins. Adrenals are normal. Kidneys appear normal in size, composition and contour with symmetrical perfusion of contrast. There is no evidence of obstructive uropathy. Both ureters are seen intermittently through their course and appear unremarkable. Partially filled bladder is also normal. Nonopacified loops of small bowel show some fluid-filled loops with a few scattered air-fluid levels. There is a large quantity of fecal material in the colon up to the splenic flexure. There is no free air, free fluid or adenopathy. Visualized vasculature shows normal caliber of the aorta, iliac and femoral femoral arteries with a few nonaneurysmal calcifications. There is normal origin of the visceral arteries. Bone windows show no overall gross abnormalities. IMPRESSION: 1. There is mucosal thickening in the gastric antrum and pylorus. In addition, there is also mucosal thickening of the GE junction. Correlation with endoscopy is recommended. 2. colon with a large quantity of fecal material in the colon up to the splenic flexure. 3. There are fluid-filled loops of small bowel with air-fluid levels. Ileus versus partial obstruction is within the differential. Perhaps a small bowel follow-through may be of further value. 4. Additional nonemergent findings, as described above. Dictated by: Dictated on workstation # [id number]
[2022-12-05 21:12] VITALS: BP 153/96
[2022-12-05] MEDS ORDERED: METOCLOPRAMIDE INJ 10 MG/2 ML (REGLAN) IVP ONE (21:15)
[2022-12-05] MEDS ORDERED: KETOROLAC 30 MG/ML VIAL IVP ONE (21:15)
[2022-12-05] MEDS ORDERED: PANTOPRAZOLE 40 MG (PROTONIX) VIAL IV ONE (21:15)
[2022-12-05] MEDS ORDERED: POLY119P5 PO (21:16)
[2022-12-05] MEDS ORDERED: OMEP20TA56 PO (21:17)
[2022-12-05] MEDS ORDERED: METO5TAB75 PO (21:17)
[2022-12-05] MEDS ORDERED: ONDA4TAB11 SL (21:17)
== END 2022-12-05 21:45 | disposition home or self-care (01) ==
LOC: EDUNIT# 17:23 → ER 17:24
DX: K91.89 Other postprocedural complications and disorders of digestive system (principal); K56.7 Ileus, unspecified; K59.00 Constipation, unspecified; R93.5 Abnormal findings on diagnostic imaging of other abdominal regions, including retroperitoneum; F17.210 Nicotine dependence, cigarettes, uncomplicated
CPT/HCPCS: 36415; 74177; 80053; 81000; 83690; 85007; 85027; 86141

== ENCOUNTER 2023-01-04 05:43 | Outpatient (CLI) | payer SELFPAY ==
[~2023-01-04] VITALS: Ht 182.9 cm; Wt 68.6 kg
[~2023-01-04 05:43] MED LIST changes: +METO5TAB75 PO; +OMEP20TA56 PO; +ONDA4TAB11 SL; +POLY119P5 PO
[2023-01-06] MEDS ORDERED: IBUP-1773 PO (12:24)
== END 2023-01-06 12:25 | disposition home or self-care (01) ==
LOC: PREOP 05:43
PROVIDERS: ATTEND Surgery
DX: Z01.818 Encounter for other preprocedural examination (principal)